=== PATIENT | female | born 1955 | race Caucasian/White ===

== ENCOUNTER 2018-04-19 12:28 | Inpatient (IN) | payer SELFPAY ==
[2018-04-19] MEDS ORDERED: MORPHINE 4 MG/ML SYR ONE (13:24)
[2018-04-19] MEDS ORDERED: ONDANSETRON 4 MG/2 ML VIAL ONE (13:24)
[2018-04-19] MEDS ORDERED: NA CHLORIDE 0.9% 1,000 ML ONE (13:25)
[2018-04-19 13:53] LABS: Absolute Lymphocytes (CBC) 1.4 K/uL (0.7-4.9); Absolute Monocytes 1.3 K/uL (0.1-1.3); Absolute Neutrophil 10.3 K/uL (1.8-8.0); Basophils % 0.5 % (0-1.3); Eosinophils % 0.3 % (0-4.4); Hematocrit 41.9 % (36.0-45.0); Lymphocytes % 10.5 % (15.3-44.8); MCH 29.9 pg (27.0-35.0); MCV 87.7 fL (80-100); MPV 7.8 fL (7.6-11.3); Monocytes % 9.9 % (3.3-12.3); RBC Red Blood Cell Count 4.77 M/uL (3.86-4.86)
[2018-04-19 14:04] LABS: Albumin 2.9 g/dL (3.4-5.0); Bilirubin Direct 0.7 mg/dL (0-0.2); Bilirubin Total 1.5 mg/dL (0.2-1.0); Potassium 4.2 mmol/L (3.5-5.1); Protein, Total 7.3 g/dL (6.4-8.2)
--- NOTE | 2018-04-19 15:37 | RAD REPORT ---
EXAM DESCRIPTION: CT - Abdomen Pelvis W Contrast - 04/19/2018 3:24 pm CLINICAL HISTORY: Abdominal pain. Right lower quadrant pain with vomiting COMPARISON: None. TECHNIQUE: Computed axial tomography of the abdomen and pelvis was obtained. 100 cc Isovue-300 is ad ministered intravenously. Oral contrast was given. All CT scans are performed using dose optimization technique as appropriate and may include automated exposure control or mA/KV adjustment according to patient size. FINDINGS: The liver, spleen, pancreas, adrenals and kidneys appear unremarkable. The appendix is retrocecal. It is dilated. Ill-defined fluid is present within the right lower quadra nt. A discrete abscess is not seen. Small amount of fluid is present within the pelvis. Wall thickeni ng of the posterior cecum is present IMPRESSION: Appendicitis Wall thickening of the posterior cecum may be secondary to inflammation or mass
--- NOTE | 2018-04-19 15:59 | ER ---
Nurse's Notes [facility] Name: Blanquita Gillespie Age: 62 yrs Sex: Female : 1955 Arrival Date: 04/19/2018 Time: 12:35 Bed 23 Private MD: Diagnosis: Acute appendicitis Presentation: 04/19 12:40 Presenting complaint: Patient states: i started having sharp pain on the R side of my hj abd; i thought its constipation so i took milk of magnesia and so i was able to go; and now it still hurting; denies fever and chills, nausea and vomiting;. Transition of care: patient was not received from another setting of care. Onset of symptoms was April 19, 2018. Risk Assessment: Do you want to hurt yourself or someone else? Patient reports no desire to harm self or others. Initial Sepsis Screen: Does the patient meet any 2 criteria? No. Patient's initial sepsis screen is negative. Does the patient have a suspected source of infection? No. Patient's initial sepsis screen is negative. Care prior to arrival: None. 12:40 Method Of Arrival: Ambulatory 12:40 Acuity: ROSAURA 3 hj Triage Assessment: 12:44 General: Appears in no apparent distress. uncomfortable, Behavior is calm, cooperative, hj appropriate for age. Pain: Complains of pain in abdomen. GI: Reports lower abdominal pain, constipation. Historical: - Allergies: 12:44 PENICILLINS; hj - Home Meds: 12:44 gabapentin 600 mg oral tab 1 tab 3 times per day [Active]; tramadol 50 mg Oral tab 1 hj tab every 4-6 hours [Active]; lisinopril 2.5 mg Oral tab 1 tab once daily [Active]; amitriptyline 100 mg Oral tab 1 tab nightly [Active]; - PMHx: 12:44 Hypertension; Pacemaker; hj - PSHx: 12:44 pacemaker; hj - Immunization history:: Adult Immunizations up to date. - Social history:: Smoking status: Patient/guardian denies using tobacco, Patient/guardian denies using alcohol. - Ebola Screening: : Patient negative for fever greater than or equal to 101.5 degrees Fahrenheit, and additional compatible Ebola Virus Disease symptoms Patient denies exposure to infectious person Patient denies travel to an Ebola-affected area in the 21 days before illness onset. Screenin:44 Abuse screen: Denies threats or abuse. Denies injuries from another. Nutritional hj screening: No deficits noted. Tuberculosis screening: No symptoms or risk factors identified. Fall Risk None identified. Assessment: 12:44 GI: Bowel sounds present X 4 quads. Abd is soft Abdomen is tender to palpation. hj 13:31 General: Appears in no apparent distress. comfortable, Behavior is calm, cooperative, aj appropriate for age. Pain: Complains of pain in right lower quadrant. Neuro: Level of Consciousness is awake, alert, obeys commands, Oriented to person, place, time, situation, Appropriate for age. Respiratory: Airway is patent Respiratory effort is even, unlabored, Respiratory pattern is regular, symmetrical. GI: Abdomen is flat, non-distended, Abdomen is tender to palpation in right lower quadrant Reports lower abdominal pain. Derm: Skin is intact, is healthy with good turgor, Skin is pink, warm \T\ dry. normal. 13:31 Reassessment: Lab called to collect blood. aj 15:01 Reassessment: Patient appears in no apparent distress at this time. No changes from aj previously documented assessment. Patient and/or family updated on plan of care and expected duration. Pain level reassessed. Patient is alert, oriented x 3, equal unlabored respirations, skin warm/dry/pink. Patient is resting comfortably in bed in NAD. 17:35 Reassessment: Patient appears in no apparent distress at this time. No changes from aj previously documented assessment. Patient and/or family updated on plan of care and expected duration. Pain level reassessed. Patient is alert, oriented x 3, equal unlabored respirations, skin warm/dry/pink. Dr Amor at bedside. Report given to OR nurse. Provided with tri fold consent. Vital Signs: 12:45 BP 129 / 54; Pulse 71; Resp 18; Temp 97.5(TE); Pulse Ox 97% on R/A; Weight 83.01 kg; hj Height 5 ft. 4 in. (162.56 cm); Pain 9/10; 13:54 BP 130 / 71; Pulse 70; Resp 16; Pulse Ox 94% on R/A; aj 15:04 BP 123 / 63; Pulse 70; Resp 14; Pulse Ox 91% on R/A; aj 17:35 BP 140 / 62; Pulse 70; Resp 18; Pulse Ox 98% on 2 lpm NC; aj 12:45 Body Mass Index 31.41 (83.01 kg, 162.56 cm) hj ED Course: 12:35 Patient arrived in ED. mr 12:42 Triage completed. hj 12:44 Arm band placed on left wrist. hj 12:45 Patient has correct armband on for positive identification. Placed in gown. Bed in low hj position. Call light in reach. Side rails up X 1. Adult w/ patient. 12:50 Chris Case PA is PHCP. cp 12:50 Chris Gaspar MD is Attending Physician. cp 13:01 Maryann Snow, YOU is Primary Nurse. aj 13:30 Inserted saline lock: 20 gauge in right forearm, using aseptic technique. Blood aj collected. 15:23 CT completed. Patient tolerated procedure well. Patient moved to CT. Patient moved back vm2 from CT. 15:24 CT Abd/Pelvis - W/Contrast In Process Unspecified. EDMS 15:58 Clark Davis MD is Hospitalizing Provider. cp 16:14 EKG done, by preventative maintenance technician. reviewed by Chris CARRENO. sm3 16:16 Gifty Hardy MD is Hospitalizing Provider. cp 16:33 X-ray completed. Portable x-ray completed in exam room. Patient tolerated procedure bb2 well. 16:34 XRAY Chest (1 view) In Process Unspecified. EDMS 17:35 No provider procedures requiring assistance completed. Patient admitted, IV remains in aj place. intact. Administered Medications: 13:29 Drug: morphine 2 mg Route: IVP; Site: right forearm; aj 18:03 Follow up: Response: No adverse reaction; Pain is decreased aj 13:29 Drug: Zofran 4 mg Route: IVP; Site: right forearm; aj 18:03 Follow up: Response: Nausea is decreased aj 13:30 Drug: NS 0.9% 500 ml Route: IV; Rate: bolus; Site: right forearm; aj 18:02 Follow up: Response: No adverse reaction; IV Status: Completed infusion; IV Intake: aj 500ml 13:30 Drug: NS 0.9% 1000 ml Route: IV; Rate: 125 ml/hr; Site: right forearm; aj 18:03 Follow up: Response: No adverse reaction; IV Status: Order to discontinue infusion; IV aj Intake: 350ml 16:06 Drug: metroNIDAZOLE 500 mg Volume: 100 ml; Route: IVPB; Infused Over: 30 mins; Site: aj right forearm; 18:04 Follow up: Response: No adverse reaction; IV Status: Completed infusion; IV Intake: aj 100ml 16:06 Drug: Mefoxin 1 grams Route: IVPB; Infused Over: 30 mins; Site: right forearm; aj 18:04 Follow up: Response: No adverse reaction; IV Status: Completed infusion; IV Intake: 10mlaj Intake: 18:02 IV: 500ml; Total: 500ml. aj 18:03 IV: 350ml; Total: 850ml. aj 18:04 IV: 100ml; Total: 950ml. aj 18:04 IV: 10ml; Total: 960ml. [place] Outcome: 15:58 Decision to Hospitalize by Provider. cp 17:35 Admitted to OR accompanied by nurse, via stretcher, with chart, Report called to OR aj nurse 17:35 Condition: good 17:35 Instructed on the need for admit. 18:05 Patient left the ED. [place] Signatures: Dispatcher [employer] Maryann Mendenhall, RN RN Sylvia Monte Henry, RN RN Chris Priest PA PA cp McGuire, Victoria 2 Cait Frey 2 Maite Fairchild 3
--- NOTE | 2018-04-19 15:59 | EDPHYS ---
Physician Documentation [facility] Name: Blanquita Gillespie Age: 62 yrs Sex: Female : 1955 Arrival Date: 04/19/2018 Time: 12:35 Bed 23 Private MD: ED Physician Chris Gaspar HPI: 04/19 13:05 This 62 yrs old Female presents to ER via Ambulatory with complaints of cp Abdominal Pain. 13:05 The patient presents with abdominal pain right lower quadrant. Onset: The cp symptoms/episode began/occurred yesterday. The symptoms do not radiate. Associated signs and symptoms: Pertinent positives: nausea, Pertinent negatives: chest pain, constipation, diarrhea, dysuria, fever, vomiting. Severity of pain: in the emergency department the pain is unchanged despite home interventions. Historical: - Allergies: 12:44 PENICILLINS; hj - Home Meds: 12:44 gabapentin 600 mg oral tab 1 tab 3 times per day [Active]; tramadol 50 mg Oral tab 1 hj tab every 4-6 hours [Active]; lisinopril 2.5 mg Oral tab 1 tab once daily [Active]; amitriptyline 100 mg Oral tab 1 tab nightly [Active]; - PMHx: 12:44 Hypertension; Pacemaker; hj - PSHx: 12:44 pacemaker; hj - Immunization history:: Adult Immunizations up to date. - Social history:: Smoking status: Patient/guardian denies using tobacco, Patient/guardian denies using alcohol. - Ebola Screening: : Patient negative for fever greater than or equal to 101.5 degrees Fahrenheit, and additional compatible Ebola Virus Disease symptoms Patient denies exposure to infectious person Patient denies travel to an Ebola-affected area in the 21 days before illness onset. ROS: 13:10 Constitutional: Negative for body aches, chills, fever, poor PO intake. cp 13:10 Eyes: Negative for injury, pain, redness, and discharge. cp 13:10 ENT: Negative for drainage from ear(s), ear pain, sore throat, difficulty swallowing, difficulty handling secretions. 13:10 Cardiovascular: Negative for chest pain, palpitations. 13:10 Respiratory: Negative for cough, shortness of breath, wheezing. 13:10 Abdomen/GI: Positive for abdominal pain, nausea, Negative for vomiting, diarrhea, constipation, black/tarry stool, rectal bleeding. 13:10 Back: Negative for pain at rest, pain with movement, radiated pain. 13:10 : Negative for urinary symptoms, pelvic pain, vaginal bleeding. 13:10 Skin: Negative for cellulitis, rash. 13:10 Neuro: Negative for altered mental status, headache, weakness. 13:10 All other systems are negative. Exam: 13:18 Constitutional: The patient appears in no acute distress, alert, awake, non-toxic, well cp developed, well nourished. 13:18 Head/Face: Normocephalic, atraumatic. cp 13:18 Eyes: Periorbital structures: appear normal, Conjunctiva: normal, no exudate, no injection, Sclera: no appreciated abnormality, Lids and lashes: appear normal, bilaterally. 13:18 ENT: External ear(s): are unremarkable, Nose: is normal, Mouth: Lips: moist, Oral mucosa: pink and intact, moist, Posterior pharynx: is normal, airway is patent, no erythema, no exudate. 13:18 Neck: ROM/movement: is normal, is supple, without pain, no range of motions limitations, no nuchal rigidity. 13:18 Chest/axilla: Inspection: normal, Palpation: is normal, no crepitus, no tenderness. 13:18 Cardiovascular: Rate: normal, Rhythm: regular, Edema: is not appreciated, JVD: is not appreciated. 13:18 Respiratory: the patient does not display signs of respiratory distress, Respirations: normal, no use of accessory muscles, no retractions, no splinting, no tachypnea, labored breathing, is not present, Breath sounds: are clear throughout, no decreased breath sounds, no stridor, no wheezing. 13:18 Abdomen/GI: Inspection: abdomen appears normal, Bowel sounds: active, all quadrants, Palpation: soft, in all quadrants, moderate abdominal tenderness, in the right lower quadrant, voluntary guarding, is elicited in the right lower quadrant. 13:18 Back: pain, is absent, ROM is normal. 13:18 Skin: cellulitis, is not appreciated, no rash present. 16:15 ECG was reviewed by the Attending Physician. cp Vital Signs: 12:45 BP 129 / 54; Pulse 71; Resp 18; Temp 97.5(TE); Pulse Ox 97% on R/A; Weight 83.01 kg; hj Height 5 ft. 4 in. (162.56 cm); Pain 9/10; 13:54 BP 130 / 71; Pulse 70; Resp 16; Pulse Ox 94% on R/A; aj 15:04 BP 123 / 63; Pulse 70; Resp 14; Pulse Ox 91% on R/A; aj 17:35 BP 140 / 62; Pulse 70; Resp 18; Pulse Ox 98% on 2 lpm NC; aj 12:45 Body Mass Index 31.41 (83.01 kg, 162.56 cm) MDM: 12:50 Patient medically screened. cp 13:30 Differential diagnosis: AAA, appendicitis, diverticulitis, GI Bleed, Ureterolithiasis, cp urinary tract infection. 15:50 Data reviewed: vital signs, nurses notes, lab test result(s), radiologic studies, plain cp films. 15:50 Physician consultation: Hipolito Amor MD was called at 15:50, was contacted at 15:50, regarding admission, patient's condition. 04/19 12:58 Order name: Amylase, Serum; Complete Time: 15:48 04/19 12:58 Order name: Basic Metabolic Panel; Complete Time: 15:48 04/19 12:58 Order name: CBC with Diff; Complete Time: 15:48 04/19 12:58 Order name: Creatinine for Radiology; Complete Time: 15:48 04/19 12:58 Order name: Hepatic Function; Complete Time: 15:48 04/19 12:58 Order name: Lipase; Complete Time: 15:48 04/19 12:58 Order name: Urine Microscopic Only 04/19 13:14 Order name: CT Abd/Pelvis - W/Contrast; Complete Time: 15:48 04/19 15:49 Interpretation: Report reviewed. 04/19 15:56 Order name: XRAY Chest (1 view); Complete Time: 17:52 04/19 17:53 Interpretation: Report review. 04/19 12:58 Order name: IV Saline Lock; Complete Time: 13:30 04/19 15:56 Order name: EKG; Complete Time: 15:56 cp EC:15 Rate is 71 beats/min. Rhythm is regular. FL interval is prolonged at 164 msec. QT cp interval is normal. T waves are Inverted in leads aVL, aVR. Interpreted by me. Reviewed by me. Administered Medications: 13:29 Drug: morphine 2 mg Route: IVP; Site: right forearm; aj 18:03 Follow up: Response: No adverse reaction; Pain is decreased aj 13:29 Drug: Zofran 4 mg Route: IVP; Site: right forearm; aj 18:03 Follow up: Response: Nausea is decreased aj 13:30 Drug: NS 0.9% 500 ml Route: IV; Rate: bolus; Site: right forearm; aj 18:02 Follow up: Response: No adverse reaction; IV Status: Completed infusion; IV Intake: aj 500ml 13:30 Drug: NS 0.9% 1000 ml Route: IV; Rate: 125 ml/hr; Site: right forearm; aj 18:03 Follow up: Response: No adverse reaction; IV Status: Order to discontinue infusion; IV aj Intake: 350ml 16:06 Drug: metroNIDAZOLE 500 mg Volume: 100 ml; Route: IVPB; Infused Over: 30 mins; Site: aj right forearm; 18:04 Follow up: Response: No adverse reaction; IV Status: Completed infusion; IV Intake: aj 100ml 16:06 Drug: Mefoxin 1 grams Route: IVPB; Infused Over: 30 mins; Site: right forearm; aj 18:04 Follow up: Response: No adverse reaction; IV Status: Completed infusion; IV Intake: 10mlaj Disposition: 04/20 06:35 Co-signature as Attending Physician, Chris Gaspar MD I agree with the assessment and arabella plan of care. Disposition: 04/19/18 15:58 Hospitalization ordered by Gifty Hardy for Observation. Preliminary diagnosis is Acute appendicitis. - Bed requested for Telemetry/MedSurg (observation). - Status is Observation. aj - Condition is Stable. - Problem is new. - Symptoms have improved. UTI on Admission? No Signatures: Dispatcher [employer] Maryann Mendenhall RN RN aj Anderson, Corey, MD MD cha Joaquin, Henry, RN RN hj Page, Corey, PA PA cp Corrections: (The following items were deleted from the chart) 04/19 16:16 15:58 Hospitalization Ordered by Clakr Davis MD for Observation. Preliminary diagnosis cp is Acute appendicitis. Bed requested for Telemetry/MedSurg (observation). Status is Observation. Condition is Stable. Problem is new. Symptoms have improved. UTI on Admission? No. cp 18:05 16:16 04/19/2018 15:58 Hospitalization Ordered by Gifty Hardy MD for Observation. aj Preliminary diagnosis is Acute appendicitis. Bed requested for Telemetry/MedSurg (observation). Status is Observation. Condition is Stable. Problem is new. Symptoms have improved. UTI on Admission? No. cp
[2018-04-19] MEDS ORDERED: CEFOXITIN/SWI 1gm 1 GM/10 ML SYR ONE (16:06)
[2018-04-19] MEDS ORDERED: METRONIDAZOLE 500mg IVPB 500 MG/100 ML BAG IV ONE (16:06)
--- NOTE | 2018-04-19 16:44 | RAD REPORT ---
EXAM DESCRIPTION: RAD - Chest Single View - 04/19/2018 4:34 pm CLINICAL HISTORY: COPD Chest pain. COMPARISON: No comparisons FINDINGS: Portable technique limits examination quality. Mild interstitial pulmonary edema is noted. The heart is prominent in size with a small left pleural effusion. No displaced fractures.Single lead pacer device is in place. IMPRESSION: Mild CHF/ volume overload.
[2018-04-19] MEDS ORDERED: PROPOFOL 200 MG/20 ML VIAL IV ONE (17:21)
[2018-04-19] MEDS ORDERED: ROCURONIUM 50 MG/5 ML VIAL IV ONE (17:23)
[2018-04-19] MEDS ORDERED: FENTANYL CITR 100 MCG/2 ML ONE (17:23)
[2018-04-19] MEDS ORDERED: Ringers Lactate 1,000 ML IV ONE (17:54)
[2018-04-19] MEDS ORDERED: EPHEDRINE SULF 50 MG/10 ML SYR ONE (18:15)
[2018-04-19] MEDS ORDERED: Phenylephrine HCl 10 MG/ML 1 ML VIAL ONE (18:21)
[2018-04-19] MEDS ORDERED: KETOROLAC 30 MG/ML INJ ONE (18:29)
[2018-04-19] MEDS ORDERED: ONDANSETRON HCL 40 MG/20 ML VIAL ONE (18:29)
[2018-04-19] MEDS ORDERED: NEOSTIGMINE 1 MG/ML -5 ML SYRINGE ONE (18:49)
[2018-04-19] MEDS ORDERED: GLYCOPYRROLATE 0.2 MG/ML SYR ONE (18:49)
[2018-04-19] MEDS ORDERED: NA CHLORIDE 0.9% 1,000 ML IV SCH (19:20)
[2018-04-19] MEDS ORDERED: ACETAMINOPHEN 500 MG TAB PO PRN (19:20)
--- NOTE | 2018-04-19 20:18 | P.BOP ---
Preoperative diagnosis: periitonitis, Acute appendicitis, colitis Postoperative diagnosis: acute perforated appendicitis with intrabdominal abscess, extensive adhesio Primary procedure: Laparoscopic appendectomy with intrabdominal abscess drainage. Secondary procedure: Partial cecectomy, extensive JOEL Estimated blood loss: <20cc Specimen: sandoval Findings: rupture appendix with intraabdominal Anesthesia: General Complications: None Transferred to: Recovery Room Condition: Good
[2018-04-19] MEDS ORDERED: CEFEPIME 1 GM/VIAL IV SCH (21:00)
[2018-04-19] MEDS ORDERED: CEFEPIME 1 GM/100 ML BAG IV ONE (21:29)
--- NOTE | 2018-04-19 23:07 | CON ---
Date of Consultation: 04/19/2018 Reason For Service: Appendicitis. History Of Present Illness: This is the case of a 62-year-old patient who comes to us complaining of abdominal pain since last night. She denies any vomiting although she states some nausea. She said it came out of the blue. She denies eating anything out of the usual. She denies any family member s sick at home. Most of the information is obtained from her. The history about her medical problem s is somehow scatter and the information is not as precise as we want to, because she claimed that philly rushing came to live with some friends recently in [place]. She used to have history of atrial fibrillati on for what she received what she claim is a pacemaker but she has not had any followup with that and she is not even taking any blood thinners. She has not had any colonoscopy because she did not have the resources to do so. Review of Systems: Ten points otherwise unremarkable. Medical History: Hypertension, atrial fibrillation, cardiac pacemaker although I do not know the det ails of it. Surgical History: Includes a hysterectomy many years ago. Social History: She does not smoke. She does not drink alcohol. Medications: Include lisinopril, amitriptyline, tramadol, and gabapentin. Allergies: PENICILLIN. Family History: Noncontributory. Physical Examination: General: Patient is awake and alert. HEENT: Pupils are equal and reactive, anicteric. Neck: Supple. Chest: Clear. Abdomen: Right lower quadrant tenderness with guarding and rebound. Psoas sign positive. Rovsing s ign positive. Pelvic: Deferred. Rectal: Deferred. Breasts: Deferred. Extremities: Good capillary refill. Laboratory Data: WBC count 13.1 with a hemoglobin of 14.3. UA is still pending. Chloride is 100, p otassium is 4.2. CAT scan of the abdomen and pelvis interpreted by Dr. Amador as acute appendiciti s. Assessment: This is a 62-year-old patient with acute appendicitis. The patient fully explained the benefits, alternatives, and risks of laparoscopic with possible open appendectomy, which include but not limited to infection, bleeding, damage to adjacent structures, anesthesia complications, [place], and even . She also understands this may not relieve any symptoms, she might need more than one katia gical intervention. It is important that patient have a colonoscopy in the next several weeks since she has not had one done and we have to rule out neoplastic disease. At the same time, it is very im portant also she follow up with her medical doctor and her supervisor polishing for a followup on her atrial fibrillation and also any medication she might be needing for the rest of other complications includi ng stroke. She understood. She verbalized back to us. The OR was emergently called. JOVAN/MUNDO Voice ID: [id number] Report ID: [id number]
[2018-04-20] MEDS: MORPHINE 4 MG/ML SYR IV PRN ×3 (03:06→20:40)
[2018-04-20] MEDS ORDERED: TRAMADOL HCL 50 MG TAB PO PRN ×3 (03:48→03:49)
[2018-04-20] MEDS: NA CHLORIDE 0.9% 1,000 ML IV SCH ×3 (04:00→18:18)
--- NOTE | 2018-04-20 06:25 | P.HP ---
Certification for Inpatient Patient admitted to: Inpatient With expected LOS: >2 Midnights Patient will require the following post-hospital care: None Practitioner: I am a practitioner with admitting privileges, knowledge of patient current condition, hospital course, and medical plan of care. Services: Services provided to patient in accordance with Admission requirements found in Title 42 Section 412.3 of the Code of Federal Regulations Patient History Date of Service: 04/19/18 Reason for admission: Acute appendicitis History of Present Illness: Patient is a 62-year-old female came into the hospital with right lower quadrant tenderness. She was seen in the emergency room and found to have an acute appendicitis. She was taken to the operating room by surgery and had a laparoscopic appendectomy performed. She had a J-tube placed and she will be given IV antibiotics and IV hydration. She will leave monitor closely over the next 24-48 hrs. Patient has history of Coronary artery disease with pacemaker placement. Patient is not compliant with her medications. 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 She is clinically doing okay but she tends to neglect herself quite a bit. She will need to be admitted to the hospital for laparoscopic appendectomy and will proceed with further plan of care after this. Allergies Penicillins Allergy (Mild, Verified 04/19/18 21:32) Rash Home Medications: Amitriptylline 100 mg PO BEDTIME 04/19/18 Gabapentin 1 tab PO TID 04/19/18 Lisinopril [Zestril] 1 tab PO DAILY 04/19/18 Tiotropium [Spiriva Handihaler*] 1 spray IH DAILY 04/19/18 Tramadol HCl [Ultram] 1 tab PO SEECOM PRN 04/19/18 - Past Medical/Surgical History Has patient received pneumonia vaccine in the past: No Diabetic: No -: HTN -: Pacemaker -: COPD -: Pacemaker - Family History Father Medical History: Heart disease - Social History Smoking Status: Former smoker Alcohol use: No CD- Drugs: No Caffeine use: Yes Place of Residence: Home Review of Systems 10-point ROS is otherwise unremarkable Physical Examination - Vital Signs Temperature: 98.3 F Blood Pressure: 127/58 Pulse: 71 Respirations: 16 Pulse Ox (%): 98 - Physical Exam General: Alert, In no apparent distress, Oriented x3 HEENT: Atraumatic, PERRLA, Mucous membr. moist/pink, EOMI, Sclerae nonicteric Neck: Supple, 2+ carotid pulse no bruit, No LAD, Without JVD or thyroid abnormality Respiratory: Clear to auscultation bilaterally, Normal air movement Cardiovascular: Regular rate/rhythm, Normal S1 S2 Gastrointestinal: Normal bowel sounds, Soft and benign, Non-distended, No tenderness, Other (J-tube draining) Musculoskeletal: No clubbing, No swelling, No tenderness Integumentary: No rashes Neurological: Normal gait, Normal speech, Normal strength at 5/5 x4 extr, Normal tone, Sensation intact, Cranial nerves 3-12 intact, Normal affect Lymphatics: No axilla or inguinal lymphadenopathy - Studies Laboratory Data (last 24 hrs) 04/19/18 13:36: Creatinine 0.70 04/19/18 13:36: WBC 13.1 H, Hgb 14.3, Hct 41.9, Plt Count 187 04/19/18 13:36: Sodium 134 L, Potassium 4.2, BUN 15, Creatinine 0.70, Glucose 91 , Total Bilirubin 1.5 H, AST 29, ALT 25, Alkaline Phosphatase 103, Amylase 23 L , Lipase 54 L Assessment & Plan - Plan Assessment: 1. Acute appendicitis 2. History of COPD 3. History of hypertension Plan: 1. Status post laparoscopic appendectomy. Patient also had a J-tube placed. Patient is clinically doing better. Feels as if her pain is much improved. She will need continued IV antibiotic therapy and blood pressure control. Will also use inhaler therapy for folks COPD. Anticipate discharge home in the next 24-48 hr. Patient meets criteria for observation. Discharge Plan: Home Plan to discharge in: Greater than 2 days - Advance Directives Does patient have a Living Will: No Does patient have a Durable POA for Healthcare: No - Code Status/Comfort Care Code Status Assessed: Yes Code Status: Full Code Critical Care: No Time Spent Managing PTS Care (In Minutes): 45
[2018-04-20 06:33] LABS: Bilirubin Total 2.4 mg/dL (0.2-1.0); Potassium 5.3 mmol/L (3.5-5.1); Protein, Total 7.4 g/dL (6.4-8.2)
[2018-04-20 06:46] LABS: Absolute Lymphocytes (CBC) 0.6 K/uL (0.7-4.9); Absolute Monocytes 1.2 K/uL (0.1-1.3); Absolute Neutrophil 13.4 K/uL (1.8-8.0); Basophils % 0.2 % (0-1.3); Hematocrit 41.2 % (36.0-45.0); MCH 30.6 pg (27.0-35.0); MCV 90.4 fL (80-100); MPV 8.3 fL (7.6-11.3); Monocytes % 7.9 % (3.3-12.3); RBC Red Blood Cell Count 4.56 M/uL (3.86-4.86)
[2018-04-20 08:42] LABS: Blood Morphology Comment NOT SEEN (NOT SEEN); Platelet Estimate ADEQ; Urine White Blood Cell Casts OK
[2018-04-20] MEDS ORDERED: CEFEPIME/SWI 1gm 1 GM/10 ML SYR IV SCH (09:00)
[2018-04-20] MEDS: LISINOPRIL 5 MG TAB PO SCH (09:00)
[2018-04-20] MEDS: TIOTROPIUM 5 SPRAYS/INHALER IH SCH (09:01)
[2018-04-20] MEDS: GABAPENTIN 300 MG CAP PO SCH ×3 (09:04→20:41)
[2018-04-20] MEDS ORDERED: PNEUMOCOCCAL VACCINE 0.5 ML IMVAC ONE (10:00)
--- NOTE | 2018-04-20 12:12 | EKG ---
Test Date: 2018-04-19 Test Time: 16:10:13 [employer] Driver: DORI MEASUREMENT RESULTS: Intervals: Rate: 71 DC: QRSD: 164 QT: 468 QTc: 508 [place]: P: DC: QRS: -56 T: 84 INTERPRETIVE STATEMENTS: Electronic ventricular pacemaker No previous ECG available for comparison Electronically Signed On 04-20-18 12:08:59 CDT by Nii Rasmussen
[2018-04-20] MEDS: Levofloxacin500mg IV 500 MG/100 ML BAG IV SCH (13:20)
[2018-04-20] MEDS: ONDANSETRON 4 MG/2 ML VIAL IV PRN ×2 (13:41→20:41)
--- NOTE | 2018-04-20 13:56 | P.PN ---
Subjective Date of Service: 04/20/18 Chief Complaint: Acute appendicitis Patient seen and examined at bedside with RN. Chart reviewed. Case discussed with general surgery. This december morning patient denies having any abdominal pain however states that her family has been sore from the surgery. Negative for flatulence. Has not been able to ambulate at this time as well. Review of Systems 10-point ROS is otherwise unremarkable Physical Examination - Vital Signs Temperature: 98 F Blood Pressure: 131/63 Pulse: 69 Respirations: 20 Pulse Ox (%): 95 - Physical Exam General: Alert, In no apparent distress HEENT: Atraumatic, PERRLA, EOMI Neck: Supple, JVD not distended Respiratory: Clear to auscultation bilaterally, Normal air movement Cardiovascular: Regular rate/rhythm, Normal S1 S2 Gastrointestinal: Normal bowel sounds, Other (HELEN drain in place), Tenderness, Rebound Musculoskeletal: No tenderness Integumentary: No rashes Neurological: Normal speech, Normal tone, Normal affect Lymphatics: No axilla or inguinal lymphadenopathy - Studies Laboratory Data (last 24 hrs) 04/19/18 13:36: Creatinine 0.70 04/19/18 13:36: WBC 13.1 H, Hgb 14.3, Hct 41.9, Plt Count 187 04/19/18 13:36: Sodium 134 L, Potassium 4.2, BUN 15, Creatinine 0.70, Glucose 91 , Total Bilirubin 1.5 H, AST 29, ALT 25, Alkaline Phosphatase 103, Amylase 23 L , Lipase 54 L Medications List Reviewed: Yes Assessment And Plan - Current Problems (Diagnosis) (1) Acute appendicitis Onset Date: 04/20/18 Current Visit: Yes Status: Acute Plan: Acute appendicitis with generalized peritonitis along with intra-abdominal abscess -general surgery consulted. Recommendation appreciated -patient is status post removal of the appendix POD 1. -currently on IV Levaquin and Flagyl -will continue to monitor closely for any worsening at this time. (2) Peritonitis Current Visit: Yes Status: Acute Plan: See # 1 (3) COPD (chronic obstructive pulmonary disease) Current Visit: Yes Status: Chronic Plan: P.dina Lange (4) HTN (hypertension) Current Visit: Yes Status: Chronic Plan: Restarted on home medication - Plan Currently awaiting clinical improvement at this time. Will continue with IV antibiotics. Will follow up with general surgery regarding diet patient encouraged to ambulate as much as possible to help pass flatulence Discharge Plan: Home Plan to discharge in: Greater than 2 days - Code Status/Comfort Care Code Status Assessed: Yes Critical Care: No
[2018-04-20] MEDS: METRONIDAZOLE 500mg IVPB 500 MG/100 ML BAG IV SCH (17:11)
[2018-04-20] MEDS: AMITRIPTYLINE 50 MG TAB PO SCH (20:41)
--- NOTE | 2018-04-20 22:44 | OP ---
Date of Procedure: 04/19/2018 Surgeon: Hipolito Amor MD Preoperative Diagnoses: Peritonitis, acute appendicitis, colitis. Postoperative Diagnoses: Acute perforated appendicitis with intraabdominal abscess. Procedure: Laparoscopic appendectomy with intraabdominal abscess drainage, partial cecectomy. Estimated Blood Loss: Less than 20 cc. Specimen: Appendix and partial cecectomy. Findings: Ruptured appendix with intraabdominal abscess. Anesthesia: General plus local. Indication: This is a case of a female who came to us emergently with abdominal pain diagnosed with appendicitis and inflammation of the cecum. The patient was taken immediately to the OR since the pa tient has peritonitis. Benefits, alternatives, and risks of laparoscopic, possible open appendectomy fully explained to the patient, which include but are not limited to infection, bleeding, damage to adjacent structures, anesthesia complication, [place], even . She also understands this may not reli rhonda any symptoms. She might need more than one surgical intervention. She understands the importanc e of colonoscopy since she has not had one before. Even though this comes back negative for cancer, still colonoscopy is needed in the next few weeks if clinically possible. She understood, signed a c onsent. Description Of Procedure: The patient was emergently brought to the operating room, placed in supine position. Anesthesia was done without complication. Abdominal area was prepped and draped in a pamela rile fashion. Marcaine 0.5% injected for local anesthetic, followed by sharp incision of the skin in the infraumbilical region. Incision was carried down to fascia, which was opened under direct visio n. Peritoneum was encountered, opened under direct vision. Vicryl #1 placed inside of the fascia. Susan trocar was carefully introduced. No bleeding was obtained. I placed 2 more trocars, 5 mm eac h one of them. We have to do some lysis of adhesions. The patient had extensive lower abdominal adh esions from previous surgery. She claims that she had a hysterectomy in the past. We put 1 trocar a nd then with the help of Endo misa connected to Bovie cauterizer we proceed to do lysis of adhesion s until we have the area clear that we could put the next trocar in the left lower quadrant. Once we did that, we checked for the lysis of adhesions. No bleeding. At that moment, I proceeded to pay a ttention to the right lower quadrant. We noticed an inflamed appendix, goes retrocecal next to the c ecum and the base of the appendix with part of the cecum was also inflamed, although no necrotic but in order for us to remove that area of disease part of the cecum have to be removed. So, we created a window in the base of the appendix, transected that with an Endo NATI 45 mm 2.5 and work away in the cecum to do a partial cecectomy of the area of the appendix base that is involved. The terminal ile um was identified at all time, preserved. Before that, cecum have to be mobilized to the right side. We noticed the inflammation, but we cannot see any mass at this time. So, the appendix was removed via partial cecectomy. The hemostasis was obtained with the help of an Endo NATI 45 mm, 2.5 for the mesoappendix, and the appendix and cecectomy was done with an Endo NATI 45 mm 2.5. No bowel leak. No bleeding. The area was profusely irrigated after the specimen was removed. We irrigated the area w ith several liters of fluid. We have some stool content from the perforation of that appendix which shows on the right side once we mobilized the area so I just left a drain in that region. The area w as cleaned and irrigated until clean. The area of the perforation looked like is right next to the b ase of the appendix, although the base of the area where we transected and the cecectomy looks intact . Not involved in the inflammation. There was no involvement in the perforation. HELEN was exiting th rough one of the ports. Area of the lysis of adhesions looks intact, and then after that, I proceede d to remove the trocars under direct vision. Deflated pneumoperitoneum. Closed the fascia with #1 V icryl, irrigated the subcutaneous tissue, closed that with 3-0 chromic and then the skin with marya . Sponge count and instrument counts were correct. The patient tolerated the procedure well. The p atient was sent to recovery room in stable condition. We suspect this patient to stay in the hospita for about 5 to 7 days on IV antibiotics. So, we are going to look abdomen for development of any o ther intraabdominal abscess. We drained the abscess that was next to the perforation now. We still have the antibiotics to try to diminish the chance of her coming back for further cleaning. She understood. JOVAN/MUNDO Voice ID: [id number] Report ID: [id number]
[2018-04-21] MEDS: METRONIDAZOLE 500mg IVPB 500 MG/100 ML BAG IV SCH ×3 (00:24→17:57)
[2018-04-21 05:56] LABS: Albumin 2.8 g/dL (3.4-5.0); Bilirubin Total 2.2 mg/dL (0.2-1.0); Potassium 5.1 mmol/L (3.5-5.1); Protein, Total 7.5 g/dL (6.4-8.2)
[2018-04-21 06:00] LABS: Absolute Lymphocytes (CBC) 0.8 K/uL (0.7-4.9); Absolute Monocytes 1.8 K/uL (0.1-1.3); Absolute Neutrophil 12.1 K/uL (1.8-8.0); Basophils % 0.3 % (0-1.3); Hematocrit 40.4 % (36.0-45.0); Lymphocytes % 5.3 % (15.3-44.8); MCH 30.6 pg (27.0-35.0); MCV 89.1 fL (80-100); MPV 7.6 fL (7.6-11.3); Monocytes % 12.3 % (3.3-12.3); RBC Red Blood Cell Count 4.54 M/uL (3.86-4.86)
[2018-04-21] MEDS: MORPHINE 4 MG/ML SYR IV PRN (08:11)
[2018-04-21] MEDS: LISINOPRIL 5 MG TAB PO SCH (08:12)
[2018-04-21] MEDS: GABAPENTIN 300 MG CAP PO SCH ×3 (08:12→20:33)
[2018-04-21] MEDS: TIOTROPIUM 5 SPRAYS/INHALER IH SCH (08:23)
[2018-04-21] MEDS: NA CHLORIDE 0.9% 1,000 ML IV SCH ×2 (08:28→17:57)
[2018-04-21 08:35] LABS: Magnesium 2.5 mg/dL (1.8-2.4); Phosphorus 3.1 mg/dL (2.5-4.9)
[2018-04-21] MEDS ORDERED: MORPHINE 4 MG/ML SYR IV PRN (11:23)
[2018-04-21] MEDS ORDERED: MORPHINE 2 MG/ML SYR IV PRN (11:24)
[2018-04-21] MEDS: Levofloxacin500mg IV 500 MG/100 ML BAG IV SCH (12:16)
--- NOTE | 2018-04-21 12:56 | RAD REPORT ---
EXAM DESCRIPTION: RAD - Chest Pa And Lat (2 Views) - 04/21/2018 12:36 pm CLINICAL HISTORY: recheck chf/volume overload Chest pain. COMPARISON: Chest Single View dated 04/19/2018; Abdomen Pelvis W Contrast dated 04/19/2018 FINDINGS: Since the prior study, mild improvement lung aeration is noted. Minimal interstitial pulmo nary edema is still likely present. The heart is significantly enlarged in size with a single lead pa cer device present. No displaced fractures. Distention of small bowel loops in the upper abdomen note d. IMPRESSION: Mild improvement in lung aeration since prior study.
--- NOTE | 2018-04-21 13:42 | P.PN ---
Subjective Date of Service: 04/21/18 Chief Complaint: Acute appendicitis Patient seen and examined at bedside with RN. Chart reviewed. Case discussed with general surgery. negative for Flatulence, Currently appears sleepy due to recent Pain medication Review of Systems 10-point ROS is otherwise unremarkable Physical Examination - Vital Signs Temperature: 98.7 F Blood Pressure: 155/65 Pulse: 64 Respirations: 18 Pulse Ox (%): 98 - Physical Exam General: Alert, In no apparent distress HEENT: Atraumatic, PERRLA, EOMI Neck: Supple, JVD not distended Respiratory: Clear to auscultation bilaterally, Normal air movement Cardiovascular: Regular rate/rhythm, Normal S1 S2 Gastrointestinal: Normal bowel sounds, Tenderness, Rebound Musculoskeletal: No tenderness Integumentary: No rashes Neurological: Normal speech, Normal tone, Normal affect Lymphatics: No axilla or inguinal lymphadenopathy - Studies Medications List Reviewed: Yes Assessment And Plan - Current Problems (Diagnosis) (1) Acute appendicitis Onset Date: 04/20/18 Current Visit: Yes Status: Acute Plan: Acute appendicitis with generalized peritonitis along with intra-abdominal abscess -general surgery consulted. Recommendation appreciated -patient is status post removal of the appendix POD 2. -currently on IV Levaquin and Flagyl -will continue to monitor closely for any worsening at this time. (2) Peritonitis Current Visit: Yes Status: Acute Plan: See # 1 (3) COPD (chronic obstructive pulmonary disease) Current Visit: Yes Status: Chronic Plan: P.r.bettye Lange (4) HTN (hypertension) Current Visit: Yes Status: Chronic Plan: Restarted on home medication - Plan Currently awaiting clinical improvement at this time. Will continue with IV antibiotics. Will follow up with general surgery regarding diet, patient encouraged to ambulate as much as possible to help pass flatulence Discharge Plan: Home Plan to discharge in: 72 Hours - Code Status/Comfort Care Code Status Assessed: Yes Critical Care: No
[2018-04-21] MEDS: TRAMADOL HCL 50 MG TAB PO PRN (20:33)
[2018-04-21] MEDS: AMITRIPTYLINE 50 MG TAB PO SCH (20:33)
[2018-04-22] MEDS: METRONIDAZOLE 500mg IVPB 500 MG/100 ML BAG IV SCH ×3 (00:01→16:23)
[2018-04-22] MEDS: TIOTROPIUM 5 SPRAYS/INHALER IH SCH (08:00)
[2018-04-22] MEDS: LISINOPRIL 5 MG TAB PO SCH (09:00)
[2018-04-22] MEDS: GABAPENTIN 300 MG CAP PO SCH ×3 (09:00→21:20)
[2018-04-22 09:56] LABS: Absolute Lymphocytes (CBC) 0.7 K/uL (0.7-4.9); Absolute Monocytes 1.2 K/uL (0.1-1.3); Absolute Neutrophil 11.7 K/uL (1.8-8.0); Basophils % 0.3 % (0-1.3); Eosinophils % 0.3 % (0-4.4); Hematocrit 38.1 % (36.0-45.0); MCH 30.8 pg (27.0-35.0); MCV 89.8 fL (80-100); MPV 7.7 fL (7.6-11.3); Monocytes % 8.4 % (3.3-12.3); RBC Red Blood Cell Count 4.25 M/uL (3.86-4.86)
[2018-04-22 10:29] LABS: Blood Morphology Comment NOT SEEN (NOT SEEN); Platelet Estimate ADEQ
[2018-04-22 11:18] LABS: Albumin 2.5 g/dL (3.4-5.0); Bilirubin Total 1.6 mg/dL (0.2-1.0); Potassium 5.1 mmol/L (3.5-5.1); Protein, Total 6.8 g/dL (6.4-8.2)
[2018-04-22] MEDS: Levofloxacin500mg IV 500 MG/100 ML BAG IV SCH (12:45)
[2018-04-22] MEDS: NA CHLORIDE 0.9% 1,000 ML IV SCH (12:45)
--- NOTE | 2018-04-22 13:39 | P.PN ---
Subjective Date of Service: 04/22/18 Chief Complaint: Acute appendicitis Patient seen and examined at bedside with RN. Chart reviewed. Case discussed with general surgery. negative for Flatulence, ambulating with PT now Review of Systems 10-point ROS is otherwise unremarkable Physical Examination - Vital Signs Temperature: 97.9 F Blood Pressure: 149/65 Pulse: 71 Respirations: 20 Pulse Ox (%): 95 - Physical Exam General: Alert, In no apparent distress HEENT: Atraumatic, PERRLA, EOMI Neck: Supple, JVD not distended Respiratory: Clear to auscultation bilaterally, Normal air movement Cardiovascular: Regular rate/rhythm, Normal S1 S2 Gastrointestinal: Normal bowel sounds, Tenderness Musculoskeletal: No tenderness Integumentary: No rashes Neurological: Normal speech, Normal tone, Normal affect Lymphatics: No axilla or inguinal lymphadenopathy - Studies Medications List Reviewed: Yes Assessment And Plan - Current Problems (Diagnosis) (1) Acute appendicitis Onset Date: 04/20/18 Current Visit: Yes Status: Acute Plan: Acute appendicitis with generalized peritonitis along with intra-abdominal abscess -general surgery consulted. Recommendation appreciated -patient is status post removal of the appendix POD 3. -currently on IV Levaquin and Flagyl -will continue to monitor closely for any worsening at this time. (2) Peritonitis Current Visit: Yes Status: Acute Plan: See # 1 (3) COPD (chronic obstructive pulmonary disease) Current Visit: Yes Status: Chronic Plan: P.r.bettye Lange (4) HTN (hypertension) Current Visit: Yes Status: Chronic Plan: Restarted on home medication - Plan Currently awaiting clinical improvement at this time. Will continue with IV antibiotics. Will follow up with general surgery regarding diet, patient encouraged to ambulate as much as possible to help pass flatulence Discharge Plan: Home Plan to discharge in: 72 Hours - Code Status/Comfort Care Code Status Assessed: Yes Critical Care: No
[2018-04-22] MEDS: AMITRIPTYLINE 50 MG TAB PO SCH (21:20)
[2018-04-22] MEDS: TRAMADOL HCL 50 MG TAB PO PRN (21:23)
[2018-04-23] MEDS: METRONIDAZOLE 500mg IVPB 500 MG/100 ML BAG IV SCH ×3 (02:00→16:37)
[2018-04-23] MEDS: NA CHLORIDE 0.9% 1,000 ML IV SCH ×3 (02:03→21:39)
[2018-04-23] MEDS ORDERED: NA CHLORIDE 0.9% 0 ML ONE ×2 (05:22→06:53)
--- NOTE | 2018-04-23 05:50 | P.PN ---
Date of Service: 04/23/18 Patient became a little weak while going to restroom. States that she made it to the edge of the bed but then she slid to the floor. Nurse in the room with her when this happened. Patient doing ok. Will recheck labs and continue with PT in am. Monitor neuro and for signs and symptoms of an acute injury
[2018-04-23] MEDS ORDERED: HYDROMORPHONE HCL 1 MG/ML INJ IV ONE (06:01)
[2018-04-23 08:49] LABS: Absolute Lymphocytes (CBC) 0.7 K/uL (0.7-4.9); Absolute Monocytes 1.2 K/uL (0.1-1.3); Absolute Neutrophil 13.4 K/uL (1.8-8.0); Basophils % 0.3 % (0-1.3); Eosinophils % 0.1 % (0-4.4); Hematocrit 42.7 % (36.0-45.0); Lymphocytes % 4.8 % (15.3-44.8); MCH 30.8 pg (27.0-35.0); MCV 90.3 fL (80-100); MPV 7.4 fL (7.6-11.3); Monocytes % 7.9 % (3.3-12.3); RBC Red Blood Cell Count 4.72 M/uL (3.86-4.86)
[2018-04-23 09:11] LABS: Albumin 2.6 g/dL (3.4-5.0); Bilirubin Total 1.4 mg/dL (0.2-1.0); Potassium 5.3 mmol/L (3.5-5.1); Protein, Total 6.9 g/dL (6.4-8.2)
[2018-04-23] MEDS: TIOTROPIUM 5 SPRAYS/INHALER IH SCH (09:31)
[2018-04-23] MEDS: LISINOPRIL 5 MG TAB PO SCH (09:32)
[2018-04-23] MEDS: TRAMADOL HCL 50 MG TAB PO PRN (09:33)
[2018-04-23] MEDS: GABAPENTIN 300 MG CAP PO SCH ×3 (09:34→21:39)
[2018-04-23] MEDS: Levofloxacin500mg IV 500 MG/100 ML BAG IV SCH (11:57)
[2018-04-23 12:22] LABS: Urine Appearance CLEAR; Urine Blood NEGATIVE (NEG); Urine Color ORANGE; Urine Glucose NEGATIVE (NEG); Urine Protein TRACE (NEG); Urine Specific Gravity 1.025 (1.005-1.030)
[2018-04-23 12:37] LABS: Urine Bilirubin 1+ (NEG); Urine Microscopic Reflex ORDER UMIC
[2018-04-23 12:57] LABS: Urine Bacteria 20-50 /HPF (<20); Urine Culture Reflex Order NOT NEEDED; Urine RBC <5 /HPF (NONE SEEN)
--- NOTE | 2018-04-23 14:26 | RAD REPORT ---
EXAM DESCRIPTION: CT - Head Brain Wo Cont - 04/23/2018 2:13 pm CLINICAL HISTORY: Dystonia COMPARISON: None. TECHNIQUE: Computed axial tomography of the head was obtained. IV contrast was not requested. All CT scans are performed using dose optimization technique as appropriate and may include automated exposure control or mA/KV adjustment according to patient size. FINDINGS: An intracranial bleed is not seen . The ventricles are not dilated. No extra-axial fluid collection is noted. Fluid within the sinuses/ mastoids is not seen. IMPRESSION: No acute intracranial abnormality is seen. If patient's symptoms persist MRI of the bra in would be recommended.
--- NOTE | 2018-04-23 16:04 | PN ---
Subjective: Currently the patient is lying in bed. She is sleepy but arousable. She is confused. She does not know where she is at. Denies any chest pain or abdominal pain. No nausea or vomiting. No fever or chills. Objective: Vital Signs: Blood pressure is 134/56, respiratory rate 20, pulse 70, temperature 97.4. The patient is arousable, but confused. Does not look in any distress. HEENT: Atraumatic, normocephalic. PERRLA. Oral mucosa is dry. Neck: Supple. No JVD. No carotid bruits. Chest: Clear to auscultation. Good air entry. Heart: Regular rate and rhythm. S1, S2 normal. No gallop. Abdomen: Soft. Minimal tenderness diffusely. Active bowel sounds. Extremities: No clubbing, no cyanosis, or edema. No calf tenderness. HELEN drain with diffuse amount of fluid. Extremities: No clubbing, no cyanosis, or edema. Neurologic: Deferred as the patient was little bit confused. Laboratory Data: Today showed CBC with white blood cells 15.4, platelets 260. Chemistry with potass ium 5.3, creatinine 0.7, GFR of 84, BUN of 27. Total bilirubin 1.4, down from 1.6. Albumin of 2.6. UA was positive for nitrite on the 15. Assessment And Plan: 1.Acute appendicitis with generalized peritonitis, status post intraabdominal abscess, postop day 4. The patient had appendectomy. Currently on IV antibiotic with Levaquin and Flagyl. Urinalysis was positive. I will proceed with urine culture. 2.Peritonitis, on antibiotic. No fever. White blood cells still high. I will check urinalysis. 3.Confusion, etiology? encephalopathy. I will proceed with CT scan. We will also check a urine cu lture given the white blood cells are going up, I will repeat blood culture. I will check her ammoni a level. Neurology consult requested as the patient's nurse reported some convulsion. 4.History of chronic obstructive pulmonary disease, stable. 5.Hypertension, well controlled on lisinopril. 6.We will start Deep vein thrombosis with Lovenox. MT/MODL Voice ID: [id number] Report ID: [id number]
--- NOTE | 2018-04-23 16:09 | P.PN ---
Subjective Date of Service: 04/23/18 Chief Complaint: Acute perforated appendicitis with abscess Subjective: No new changes Review of Systems General: Weakness Eyes: Unremarkable ENT: Unremarkable Respiratory: Unremarkable Cardiovascular: Unremarkable Gastrointestinal: As per HPI Genitourinary: Unremarkable Musculoskeletal: Unremarkable Physical Examination - Vital Signs Temperature: 97.4 F Blood Pressure: 147/63 Pulse: 70 Respirations: 18 Pulse Ox (%): 94 - Physical Exam General: In no apparent distress, Oriented x3, Cooperative Neck: Supple Respiratory: Normal air movement Cardiovascular: No edema, Normal pulses Musculoskeletal: No erythema, No tenderness, No warmth Integumentary: No rashes, No erythema, No warmth, No cyanosis Neurological: Normal speech ("feel tired") - Studies Medications List Reviewed: Yes Assessment And Plan - Plan Primary MD looking over "new tiredness" Check electrolites HELEN serous, no bleeding or pus
[2018-04-23] MEDS: ENOXAPARIN 40 MG/0.4 ML SQ SCH (16:37)
[2018-04-23] MEDS: AMITRIPTYLINE 50 MG TAB PO SCH (21:39)
[2018-04-24] MEDS: METRONIDAZOLE 500mg IVPB 500 MG/100 ML BAG IV SCH ×3 (02:13→16:33)
[2018-04-24 03:00] LABS: Barbiturates NEGATIVE (NEGATIVE); Benzodiazepines NEGATIVE (NEGATIVE); Cocaine NEGATIVE (NEGATIVE); METHAMPHETAM NEGATIVE (NEGATIVE); Methadone NEGATIVE (NEGATIVE); Opiates POSITIVE (NEGATIVE); Phencyclidine NEGATIVE (NEGATIVE); THC Cannibis NEGATIVE (NEGATIVE)
[2018-04-24 07:54] LABS: Absolute Lymphocytes (CBC) 0.8 K/uL (0.7-4.9); Absolute Monocytes 1.2 K/uL (0.1-1.3); Absolute Neutrophil 8.4 K/uL (1.8-8.0); Basophils % 0.5 % (0-1.3); Eosinophils % 0.8 % (0-4.4); Hematocrit 40.3 % (36.0-45.0); MCH 30.9 pg (27.0-35.0); MCV 89.4 fL (80-100); MPV 7.3 fL (7.6-11.3); Monocytes % 11.4 % (3.3-12.3); RBC Red Blood Cell Count 4.51 M/uL (3.86-4.86)
[2018-04-24 08:08] LABS: BUN Blood Urea Nitrogen 20 mg/dL (7-18); Bicarbonate 25 mmol/L (21-32); Glucose Level 104 mg/dL (74-106); Potassium 4.5 mmol/L (3.5-5.1); Sodium Level 138 mmol/L (136-145)
[2018-04-24] MEDS: TIOTROPIUM 5 SPRAYS/INHALER IH SCH (09:01)
[2018-04-24] MEDS: NA CHLORIDE 0.9% 1,000 ML IV SCH ×2 (09:01→22:24)
[2018-04-24] MEDS: LISINOPRIL 5 MG TAB PO SCH (09:02)
[2018-04-24] MEDS: GABAPENTIN 300 MG CAP PO SCH ×3 (09:02→21:10)
[2018-04-24] MEDS: Levofloxacin500mg IV 500 MG/100 ML BAG IV SCH (11:36)
[2018-04-24] MEDS ORDERED: HYDRALAZINE HCL 20 MG/ML VIAL IV PRN (14:17)
[2018-04-24] MEDS: ENOXAPARIN 40 MG/0.4 ML SQ SCH (16:33)
--- NOTE | 2018-04-24 20:36 | PN ---
Subjective: Patient is lying in bed. She is more awake, but she is bit confused. She is not oriented. She was seen by Dr. Amor yesterday and he is not concerned about surgery related issue. She has no seizure or convulsions this morning. CAT scan of the head yesterday done and was negative. Neurology consult requested, but is still pending. Objective: Vital signs: Today, blood pressure is 160/71, respiratory rate 16, pulse 72, and temperature 97.4. She is saturating 95% on room air. General: The patient is alert, but somewhat confused. She is mumbling, but does not look in any distress. HEENT: Atraumatic, normocephalic. PERRLA. Oral mucosa is dry. Neck: Supple. No JVP. No bruits. Chest: Clear to auscultation. Good air entry. Heart: Regular rate and rhythm. S1, S2 normal. No gallop. Abdomen: Soft. Minimal tenderness diffusely. JVD noted. Yellowish fluid in the collection bottle. Active bowel sounds. Extremities: No clubbing, cyanosis, or edema. No calf tenderness. Neurologic: Again, the patient is alert, but not oriented. She is able to follow commands. She has normal muscle strength and normal sensation. Laboratory Data: Today labs, CBC within normal. Chemistry within normal. Urine tox screen we did yesterday was positive for opiates, which she is being given in the hospital. CT of the head was negative. Assessment And Plan: 1. Acute appendicitis with generalized peritonitis, status post intraabdominal abscess, postoperative day 5. The patient had appendectomy, tolerated procedure well. She is on IV antibiotic with Levaquin and Flagyl. UA was positive as well, but urine culture showed no growth. 2. Peritonitis, on antibiotic with HELEN drain currently. Drain culture was done yesterday, so far no growth. 3. Confusion, improved. The patient is more alert today. CAT scan of the head was negative according to the nurse pt had witnessed convulsions which I could not appreciate. Neurology consult requested, patient is bit confused. ? delirium. I will try to reorient the patient to the day and time, but we will await Neurology input in the a.m. 4. Chronic obstructive pulmonary disease history, stable. 5. Hypertension, not well controlled on lisinopril. I will add hydralazine as needed. 6. Deep vein thrombosis prophylaxis with Lovenox. 7. Discharge plan depend on mental status and if patient is back to baseline and also in terms of antibiotics that would need to be decided by Dr. Amor as outpatient. CARLTON/MUNDO Voice ID: [id number] Report ID: [id number] PIPE
[2018-04-24] MEDS: AMITRIPTYLINE 50 MG TAB PO SCH (21:09)
[2018-04-25] MEDS: METRONIDAZOLE 500mg IVPB 500 MG/100 ML BAG IV SCH ×3 (00:58→18:10)
[2018-04-25] MEDS: LISINOPRIL 5 MG TAB PO SCH (09:18)
[2018-04-25] MEDS: GABAPENTIN 300 MG CAP PO SCH ×3 (09:18→20:20)
[2018-04-25] MEDS: Levofloxacin500mg IV 500 MG/100 ML BAG IV SCH (11:41)
[2018-04-25] MEDS: NA CHLORIDE 0.9% 1,000 ML IV SCH (14:59)
[2018-04-25 15:59] LABS: Absolute Lymphocytes (CBC) 0.8 K/uL (0.7-4.9); Absolute Monocytes 1.3 K/uL (0.1-1.3); Absolute Neutrophil 10.8 K/uL (1.8-8.0); Basophils % 0.3 % (0-1.3); Eosinophils % 0.9 % (0-4.4); Hematocrit 42.6 % (36.0-45.0); Lymphocytes % 6.4 % (15.3-44.8); MCV 91.2 fL (80-100); MPV 7.3 fL (7.6-11.3); Monocytes % 10.1 % (3.3-12.3); RBC Red Blood Cell Count 4.68 M/uL (3.86-4.86)
[2018-04-25 16:03] LABS: BUN Blood Urea Nitrogen 11 mg/dL (7-18); Bicarbonate 27 mmol/L (21-32); Glucose Level 109 mg/dL (74-106); Potassium 4.3 mmol/L (3.5-5.1); Sodium Level 137 mmol/L (136-145)
[2018-04-25] MEDS: ENOXAPARIN 40 MG/0.4 ML SQ SCH (18:10)
--- NOTE | 2018-04-25 18:24 | P.PN ---
Subjective Date of Service: 04/25/18 Chief Complaint: Acute perforated appendicitis with abscess Patient seen and examined at bedside with RN. Chart reviewed. Case discussed with general surgery. Has been having weakness and confusion intermittently. Review of Systems 10-point ROS is otherwise unremarkable Physical Examination - Vital Signs Temperature: 98.3 F Blood Pressure: 143/84 Pulse: 73 Respirations: 18 Pulse Ox (%): 93 - Physical Exam General: Alert, In no apparent distress, Oriented x2 HEENT: Atraumatic, PERRLA, EOMI Neck: Supple, JVD not distended Respiratory: Clear to auscultation bilaterally, Normal air movement Cardiovascular: Regular rate/rhythm, Normal S1 S2 Gastrointestinal: Normal bowel sounds, Tenderness (Abd tenderness generalized) Musculoskeletal: No tenderness Integumentary: No rashes Neurological: Normal speech, Normal tone, Normal affect Lymphatics: No axilla or inguinal lymphadenopathy - Studies Medications List Reviewed: Yes Assessment And Plan - Current Problems (Diagnosis) (1) Acute appendicitis Onset Date: 04/20/18 Current Visit: Yes Status: Acute Plan: Acute appendicitis with generalized peritonitis along with intra-abdominal abscess -general surgery consulted. Recommendation appreciated -patient is status post removal of the appendix POD 6. -currently on IV Levaquin and Flagyl -will continue to monitor closely (2) Peritonitis Current Visit: Yes Status: Acute Plan: See # 1 (3) COPD (chronic obstructive pulmonary disease) Current Visit: Yes Status: Chronic Plan: P.r.bettye Lange (4) HTN (hypertension) Current Visit: Yes Status: Chronic Plan: Restarted on home medication - Plan Currently awaiting clinical improvement at this time. Will continue with IV antibiotics. pending neuro consult. Discharge Plan: Home Plan to discharge in: 24 Hours - Code Status/Comfort Care Code Status Assessed: Yes Critical Care: No
[2018-04-25] MEDS ORDERED: AMITRIPTYLINE 25 MG TAB ONE (20:04)
[2018-04-25] MEDS: AMITRIPTYLINE 50 MG TAB PO SCH (20:21)
[2018-04-26] MEDS: METRONIDAZOLE 500mg IVPB 500 MG/100 ML BAG IV SCH ×2 (00:26→09:11)
--- NOTE | 2018-04-26 00:43 | CON ---
Reason For Consultation: Consultation called because of possible seizure. History Of Present Illness: Ms. Gillespie is a 62-year-old right-handed patient admitted to the hospital with acute appendicitis and peritonitis and being treated for that by the Hospitalist and Surgical Service. Two days ago around , reportedly the patient was going to the restroom an d while doing so had some shaking in her legs. She was standing. The tremors were on both sides and postural as reviewed by the nursing notes. There is a question of the patient not responding quickl y or appropriately, but the patient herself said that she was fully aware of what is going on, and sh e does not believe at all that it was a seizure. She had no tongue biting, no bowel or bladder loss, and no significant confusion. The patient did have a head CT scan after, and it showed no acute isc hemic or hemorrhagic change. There is brain MRI pending. There is also EEG pending. The patient de nies history of seizures or prior seizure-like activity, and no additional tremors or shaking. She h as been up and ambulating with physical therapy and has done perhaps 50 or more feet, and there is no report of any additional activity as documented by the nursing staff. The physical therapy note did indicate that the last attempted ambulation she did was assisted from her chair. Her knees did faustin le, and the therapist will be back to assess her after MRI. However, there was no shaking of the leg s or arms noted. It should be noted that she did have some intermittent twitches when she did try to ambulate with the therapist earlier on the around 9:50 in the morning. Past Medical History: Hypertension, chronic obstructive pulmonary disease. Past Surgical History: Pacemaker placement. Medications: At home, amitriptyline 100 mg at bedtime, gabapentin 3 times daily 600 mg, estriol caridad y, Spiriva inhaler 1 spray daily, Ultram 50 mg daily. Allergies: PENICILLIN. Family History: Positive for heart disease in her father. Social History: Smoked in the past. Resides at home. No alcohol use. Review of Systems: A 10-point review of systems, the patient does have abdominal pain, mild nausea, and some fatigue and lightheadedness and occasionally with ambulation and has diffuse weakness. Physical Examination: Vital Signs: Blood pressure 143/84, pulse 73, respiratory rate 18, temperature 98.3, oxygen saturati on 94%, weight 186 pounds, height 5 feet 4 inches. General: Ms. Gillespie is resting in bed, she has a friend at bedside, in no acute distress. HEENT: She appears to be normocephalic, atraumatic. She does have a redness appearance that is hype remic appearance of her face. No areas of hematoma noted, however. She again is atraumatic. Sclera e anicteric. Oropharynx is moist. Neck: Supple. Chest: Clear. Heart: Regular. Abdomen: Soft. Extremities: Show no significant edema or cyanosis. Neurologic: She is alert and oriented to situation, place, and person. Follows commands appropriate ly. Cranial nerves show no deficits on 2 through 12. Motor examination, she has diffuse weakness. She is able to hold both arms up on count 10 with no focal findings on her upper extremity examinatio n is at least 4/5 proximally and distally. In the lower extremities, she does note some weakness. I n the lower extremities symmetrically, she is able to lift both heels off the bed but just for tempor rima times at least 3+ to 4/5 bilaterally. Sensory examination, she has a stocking-glove loss, light touch, temperature in the arms and legs. Reflexes are trace in upper lower extremities. Coordinatio n is intact in the upper and lower extremities. Gait, she requires moderate to max assist to stand a nd ambulate. Laboratory Studies: White blood cell count 13.4 with 82.3% neutrophils, hemoglobin 14, hematocrit 42 .6, platelets 233. Chemistries: Sodium 137, potassium 4.3, chloride 104, carbon dioxide 27, BUN 11, creatinine 0.5, glucose ranged from 87 to 109, calcium 8.5, total bilirubin 1.4. Liver function soraida dies are normal. Ammonia 29. Her urinalysis from the shows positive nitrites, trace esterase, 1+ bilirubin, 20 to 50 bacteria. Her urine screen is positive for opiates. This was on the [address] head [address] scan indicated no acute ischemic or hemorrhagic change. Chest x-ray, no acute c ardiopulmonary processes. Assessment: Ms. Gillespie is a 62-year-old patient with postural tremors likely related to neuropat hy and diffuse weakness, which is secondary to being in bed and hospitalized with debility. She has no evidence of seizures per the patient's recount and the description of the events in the nursing re port. She does have diffuse weakness on exam, but no focal neurological deficits on examination. He ad CT scan shows no significant abnormalities. Plan: 1.We will follow up brain MRI, stroke protocol to rule out the potential for structural lesion. 2.We will have EEG to rule out a focal epileptiform discharge or focal slow activity or other abnorm alities. 3.We will hold off on antiepileptic medications. 4.Okay to continue with DVT prophylaxis using Lovenox subcutaneously daily. The patient may be plac ed on a small aspirin daily and should have a lipid panel done to rule out dyslipidemia and to furthe r stratify stroke risk and reduce the risk of stroke. ALEX Voice ID: [id number] Report ID: [id number]
[2018-04-26] MEDS: NA CHLORIDE 0.9% 1,000 ML IV SCH ×4 (03:00→22:43)
[2018-04-26] MEDS: TRAMADOL HCL 50 MG TAB PO PRN ×2 (06:11→22:49)
[2018-04-26] MEDS: TIOTROPIUM 5 SPRAYS/INHALER IH SCH ×2 (08:00→09:35)
[2018-04-26] MEDS: LISINOPRIL 5 MG TAB PO SCH (09:00)
[2018-04-26] MEDS: GABAPENTIN 300 MG CAP PO SCH ×3 (09:00→20:54)
[2018-04-26] MEDS: Levofloxacin500mg IV 500 MG/100 ML BAG IV SCH (12:00)
[2018-04-26] MEDS: levoFLOXacin 500 MG TAB PO SCH (13:12)
[2018-04-26] MEDS: metroNIDAZOLE 500 MG TABLET PO SCH ×2 (13:14→20:55)
--- NOTE | 2018-04-26 15:21 | P.PN ---
Subjective Date of Service: 04/26/18 Chief Complaint: Acute perforated appendicitis with abscess Patient seen and examined at bedside with RN. Chart reviewed. Case discussed with general surgery. Has been having weakness and confusion intermittently. This appeared to be better than before. Unable to obtain MRI of the brain at this time due to pacemaker not being able to be compatible with the MRI machine. Pending EEG at this time Review of Systems 10-point ROS is otherwise unremarkable Physical Examination - Vital Signs Temperature: 97.6 F Blood Pressure: 168/78 Pulse: 71 Respirations: 18 Pulse Ox (%): 94 - Physical Exam General: Alert, In no apparent distress, Oriented x2, Demented HEENT: Atraumatic, PERRLA, EOMI Neck: Supple, JVD not distended Respiratory: Clear to auscultation bilaterally, Normal air movement Cardiovascular: Regular rate/rhythm, Normal S1 S2 Gastrointestinal: Normal bowel sounds, No tenderness Musculoskeletal: No tenderness Integumentary: No rashes Neurological: Normal speech, Normal tone, Normal affect Lymphatics: No axilla or inguinal lymphadenopathy - Studies Medications List Reviewed: Yes Assessment And Plan - Current Problems (Diagnosis) (1) Confusion Current Visit: Yes Status: Acute Plan: Patient with history of possible in oxy brain injury during cardiac resuscitation in the past -currently alert and oriented x2 with intermittent confusion -neurology consulted who recommends patient get an MRI EEG done at this time -MRI unable to obtain due to pacemaker -EEG is pending at this time -Patient is most likely at her baseline however will rule out acute abnormality at this time (2) Acute appendicitis Onset Date: 04/20/18 Current Visit: Yes Status: Acute Plan: Acute appendicitis with generalized peritonitis along with intra-abdominal abscess -general surgery consulted. Recommendation appreciated -patient is status post removal of the appendix POD 7. -currently on p.o. Levaquin and Flagyl -will continue to monitor closely (3) Peritonitis Current Visit: Yes Status: Acute Plan: See # 1 (4) COPD (chronic obstructive pulmonary disease) Current Visit: Yes Status: Chronic Plan: P.r.n. DuLatishab (5) HTN (hypertension) Current Visit: Yes Status: Chronic Plan: Restarted on home medication - Plan Currently awaiting clinical improvement at this time. Currently awaiting EEG for intermittent confusion at this time. Discharge Plan: Other Plan to discharge in: 48 Hours - Code Status/Comfort Care Code Status Assessed: Yes Critical Care: No
[2018-04-26] MEDS: ENOXAPARIN 40 MG/0.4 ML SQ SCH (16:36)
[2018-04-26] MEDS: AMITRIPTYLINE 50 MG TAB PO SCH (20:54)
[2018-04-27] MEDS ORDERED: LICE TREATMENT 1 APPL/120 ML BTL TOP ONE (08:00)
[2018-04-27] MEDS: GABAPENTIN 300 MG CAP PO SCH ×3 (09:50→21:32)
[2018-04-27] MEDS: metroNIDAZOLE 500 MG TABLET PO SCH ×3 (09:50→21:32)
[2018-04-27] MEDS: TIOTROPIUM 5 SPRAYS/INHALER IH SCH (09:50)
[2018-04-27] MEDS: levoFLOXacin 500 MG TAB PO SCH (09:50)
[2018-04-27] MEDS: LISINOPRIL 5 MG TAB PO SCH (13:08)
--- NOTE | 2018-04-27 13:44 | P.PN ---
Subjective Date of Service: 04/27/18 Chief Complaint: Acute perforated appendicitis with abscess Patient seen and examined at bedside with RN. Chart reviewed. Case discussed with general surgery. Has been having weakness and confusion intermittently. This appeared to be better than before. Unable to obtain MRI of the brain at this time due to pacemaker not being able to be compatible with the MRI machine. Pending EEG at this time Physical Examination - Vital Signs Temperature: 97 F Blood Pressure: 186/79 Pulse: 72 Respirations: 18 Pulse Ox (%): 92 - Studies Medications List Reviewed: Yes Assessment And Plan - Current Problems (Diagnosis) (1) Confusion Current Visit: Yes Status: Acute Plan: Patient with history of possible in oxy brain injury during cardiac resuscitation in the past -currently alert and oriented x2 with intermittent confusion -neurology consulted who recommends patient get an MRI EEG done at this time -MRI unable to obtain due to pacemaker -EEG is pending at this time -Patient is most likely at her baseline however will rule out acute abnormality at this time (2) Acute appendicitis Onset Date: 04/20/18 Current Visit: Yes Status: Acute Plan: Acute appendicitis with generalized peritonitis along with intra-abdominal abscess -general surgery consulted. Recommendation appreciated -patient is status post removal of the appendix POD 7. -currently on p.o. Levaquin and Flagyl -will continue to monitor closely (3) Peritonitis Current Visit: Yes Status: Acute Plan: See # 1 (4) COPD (chronic obstructive pulmonary disease) Current Visit: Yes Status: Chronic Plan: P.r.n. Nazario (5) HTN (hypertension) Current Visit: Yes Status: Chronic Plan: Restarted on home medication - Plan Currently awaiting clinical improvement at this time. Currently awaiting EEG for intermittent confusion at this time.
[2018-04-27 14:15] LABS: ALT/SGPT 11 U/L (12-78); AST/SGOT 17 U/L (15-37); Albumin 2.2 g/dL (3.4-5.0); BUN Blood Urea Nitrogen 6 mg/dL (7-18); Bicarbonate 31 mmol/L (21-32); Glucose Level 129 mg/dL (74-106); Potassium 4.2 mmol/L (3.5-5.1); Sodium Level 140 mmol/L (136-145)
[2018-04-27 14:17] LABS: Bilirubin Total 0.8 mg/dL (0.2-1.0); Protein, Total 6.2 g/dL (6.4-8.2)
[2018-04-27 14:18] LABS: Alkaline Phosphatase 65 U/L (45-117)
[2018-04-27 15:03] LABS: Absolute Lymphocytes (CBC) 0.8 K/uL (0.7-4.9); Absolute Monocytes 0.9 K/uL (0.1-1.3); Absolute Neutrophil 8.8 K/uL (1.8-8.0); Basophils % 0.3 % (0-1.3); Eosinophils % 1.5 % (0-4.4); Hematocrit 42.1 % (36.0-45.0); Lymphocytes % 7.9 % (15.3-44.8); MCH 30.8 pg (27.0-35.0); MCV 90.6 fL (80-100); MPV 7.3 fL (7.6-11.3); Monocytes % 8.2 % (3.3-12.3); RBC Red Blood Cell Count 4.64 M/uL (3.86-4.86)
--- NOTE | 2018-04-27 15:09 | P.PN ---
Subjective Date of Service: 04/27/18 Chief Complaint: Acute perforated appendicitis with abscess Patient seen and examined at bedside with RN. Chart reviewed. Patient still continues to be with intermittent confusion. Currently participating with physical therapy however minimal participation due to intermittent confusion. Patient also had a lice infestation noted yesterday Review of Systems 10-point ROS is otherwise unremarkable Physical Examination - Vital Signs Temperature: 97 F Blood Pressure: 186/79 Pulse: 72 Respirations: 18 Pulse Ox (%): 92 - Physical Exam General: Alert, In no apparent distress, Other (With intermittent confusion) HEENT: Atraumatic, PERRLA, EOMI Neck: Supple, JVD not distended Respiratory: Clear to auscultation bilaterally, Normal air movement Cardiovascular: Regular rate/rhythm, Normal S1 S2 Gastrointestinal: Normal bowel sounds, No tenderness Musculoskeletal: No tenderness Integumentary: No rashes Neurological: Normal speech, Normal tone, Normal affect Lymphatics: No axilla or inguinal lymphadenopathy - Studies Medications List Reviewed: Yes Assessment And Plan - Current Problems (Diagnosis) (1) Confusion Current Visit: Yes Status: Acute Plan: Patient with history of 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 Recommendation appreciated -patient is status post removal of the appendix POD 8. -currently on p.o. Levaquin and Flagyl -will continue to monitor closely (3) Peritonitis Current Visit: Yes Status: Acute Plan: See # 1 (4) COPD (chronic obstructive pulmonary disease) Current Visit: Yes Status: Chronic Plan: P.r.n. Nazario (5) HTN (hypertension) Current Visit: Yes Status: Chronic Plan: Restarted on home medication - Plan Currently awaiting clinical improvement at this time. Currently awaiting EEG for intermittent confusion at this time. Discharge Plan: Other Plan to discharge in: 48 Hours - Code Status/Comfort Care Code Status Assessed: Yes Critical Care: No
[2018-04-27] MEDS: NA CHLORIDE 0.9% 1,000 ML IV SCH ×2 (15:31→21:32)
[2018-04-27] MEDS: ENOXAPARIN 40 MG/0.4 ML SQ SCH (18:50)
[2018-04-27] MEDS: AMITRIPTYLINE 50 MG TAB PO SCH (21:32)
[2018-04-28] MEDS: LISINOPRIL 5 MG TAB PO SCH (10:14)
[2018-04-28] MEDS: levoFLOXacin 500 MG TAB PO SCH (10:16)
[2018-04-28] MEDS: GABAPENTIN 300 MG CAP PO SCH ×3 (10:16→22:49)
[2018-04-28] MEDS: metroNIDAZOLE 500 MG TABLET PO SCH ×3 (10:16→22:49)
--- NOTE | 2018-04-28 11:48 | P.PN ---
Subjective Date of Service: 04/28/18 Chief Complaint: Acute perforated appendicitis with abscess Patient seen and examined at bedside with RN. Chart reviewed. Patient still continues to be with intermittent confusion. Currently participating with physical therapy however minimal participation due to intermittent confusion. Patient also had a lice infestation noted Review of Systems 10-point ROS is otherwise unremarkable Physical Examination - Vital Signs Temperature: 97.2 F Blood Pressure: 194/84 Pulse: 72 Respirations: 16 Pulse Ox (%): 93 - Physical Exam General: Alert, In no apparent distress, Oriented x2 HEENT: Atraumatic, PERRLA, EOMI Neck: Supple, JVD not distended Respiratory: Clear to auscultation bilaterally, Normal air movement Cardiovascular: Regular rate/rhythm, Normal S1 S2 Gastrointestinal: Normal bowel sounds, No tenderness Musculoskeletal: No tenderness Integumentary: No rashes Neurological: Normal speech, Normal tone, Normal affect Lymphatics: No axilla or inguinal lymphadenopathy - Studies Medications List Reviewed: Yes Assessment And Plan - Current Problems (Diagnosis) (1) Confusion Current Visit: Yes Status: Acute Plan: Patient with history of 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 Appreciated recommendations at this time -MRI unable to obtain due to pacemaker -EEG is pending at this time -Patient is most likely at her baseline however will rule out acute abnormality at this time (2) Acute appendicitis Onset Date: 04/20/18 Current Visit: Yes Status: Acute Plan: Acute appendicitis with generalized peritonitis along with intra-abdominal abscess -general surgery consulted. Recommendation appreciated -patient is status post removal of the appendix POD 9. -currently on p.o. Levaquin and Flagyl -will continue to monitor closely (3) Peritonitis Current Visit: Yes Status: Acute Plan: See # 1 (4) COPD (chronic obstructive pulmonary disease) Current Visit: Yes Status: Chronic Plan: P.r.n. Nazario (5) HTN (hypertension) Current Visit: Yes Status: Chronic Plan: Restarted on home medication - Plan Currently awaiting clinical improvement at this time. Currently awaiting EEG for intermittent confusion at this time. Patient has limited participation with physical therapy due to intermittent confusion. Patient however is on funded and thus home health for placement is going to be challenging at this time. Patient however will require rehab before she goes home as she is currently not able to participate with physical therapy due to intermittent confusion which has been causing her to be debilitated. Discharge Plan: Other Plan to discharge in: 24 Hours - Code Status/Comfort Care Code Status: Full Code Critical Care: No
[2018-04-28] MEDS: NA CHLORIDE 0.9% 1,000 ML IV SCH (12:12)
[2018-04-28] MEDS: TIOTROPIUM 5 SPRAYS/INHALER IH SCH ×2 (12:21→12:35)
--- NOTE | 2018-04-28 12:30 | RAD REPORT ---
EXAM DESCRIPTION: Familia Single View04/28/2018 11:51 am CLINICAL HISTORY: Shortness breath COMPARISON: 04/21/2018 FINDINGS: The lungs appear clear of acute infiltrate. The heart is moderately enlarged. The main pulmonary artery is prominent likely indicating pulmonary arterial hypertension Pacemaker lead is in place IMPRESSION: No acute abnormalities displayed
--- NOTE | 2018-04-28 15:23 | EEG ---
CHART: [id number] TEST ID#: [id number] DATE OF STUDY: 04/26/2018 THE EEG WAS RECORDED PORTABLE IN THE PATIENTS ROOM ON A 17 CHANNEL MACHINE. ELECTRODES WERE APPLIED IN THE USUAL MANNER USING THE INTERNATIONAL 10-20 SYSTEM. THE WAKING BACKGROUND RHYTHM IN THIS RECORD CONSISTS OF POORLY DEVELOPED AND POORLY ORGANIZED WAVES OF 7-8 HZ., MAXIMAL IN THE POSTERIOR HEAD REGIONS WHICH ATTENUATE POORLY WITH EYE OPENING. HIGH VOLTAGE 1.5-3 HZ ACTIVITY IS EXPRESSED IN THE LEFT FRONTAL AND TEMPORAL REGIONS. MODERATE VOLTAGE 4-6 HZ ACTIVITY IS DIFFUSELY EXPRESSED IN THE FRONTAL AND RIGHT CENTRAL REGIONS. THERE ARE NO FOCAL OR LATERALIZING FEATURES. NO EPILEPTIFORM ACTIVITY APPEARS. SLEEP DID NOT OCCUR. HYPERVENTILATION WAS NOT PEFORMED. PHOTIC STIMULATION PRODUCED NO DRIVING BILATERALLY. IMPRESSION: THIS IS A MODERATELY ABNORMAL ROUTINE EEG DUE TO A FOCUS OF HIGH VOLTAGE SLOW (DELTA) ACTIVITY IN THE LEFT CENTRAL AND TEMPORAL REGIONS. FURTHERMORE, THE EEG BACKGROUND IS DIFFUSELY SLOW (DELTA AND THETA). THESE FINDINGS INDICATED THE PREENCE OF A LESION IN THE LEFT CENTRAL AND TEMPORAL REGIONS WITH A SUPERIMPOSED DIFFUSE DISTURBANCE IN CEREBRAL ACTIVITY.
[2018-04-28] MEDS: ENOXAPARIN 40 MG/0.4 ML SQ SCH (17:57)
[2018-04-28] MEDS: AMITRIPTYLINE 50 MG TAB PO SCH (22:49)
[2018-04-29] MEDS: NA CHLORIDE 0.9% 1,000 ML IV SCH ×3 (01:52→17:57)
[2018-04-29 05:12] LABS: Magnesium 1.8 mg/dL (1.8-2.4); Phosphorus 3.1 mg/dL (2.5-4.9)
[2018-04-29] MEDS ORDERED: MAGNESIUM SULFATE 1 gm IVPB 1 GM/100 ML BAG IV ONE (06:30)
[2018-04-29] MEDS: LISINOPRIL 5 MG TAB PO SCH (08:56)
[2018-04-29] MEDS: metroNIDAZOLE 500 MG TABLET PO SCH ×3 (08:56→21:03)
[2018-04-29] MEDS: levoFLOXacin 500 MG TAB PO SCH (08:56)
[2018-04-29] MEDS: TIOTROPIUM 5 SPRAYS/INHALER IH SCH (08:57)
[2018-04-29] MEDS: GABAPENTIN 300 MG CAP PO SCH ×3 (08:57→21:03)
--- NOTE | 2018-04-29 12:13 | P.PN ---
Subjective Date of Service: 04/29/18 Chief Complaint: Acute perforated appendicitis with abscess Patient seen and examined at bedside with RN. Chart reviewed. Patient still continues to be with intermittent confusion. Currently participating with physical therapy. No complaints to offer overnight. Have been trying to get in touch with patient's daughter however has not been successful. Will try again today. Review of Systems 10-point ROS is otherwise unremarkable Physical Examination - Vital Signs Temperature: 97.2 F Blood Pressure: 170/74 Pulse: 71 Respirations: 18 Pulse Ox (%): 94 - Physical Exam General: Alert, In no apparent distress HEENT: Atraumatic, PERRLA, EOMI Neck: Supple, JVD not distended Respiratory: Clear to auscultation bilaterally, Normal air movement Cardiovascular: Regular rate/rhythm, Normal S1 S2 Gastrointestinal: Normal bowel sounds, No tenderness Musculoskeletal: No tenderness Integumentary: No rashes Neurological: Normal speech, Normal tone, Normal affect Lymphatics: No axilla or inguinal lymphadenopathy - Studies Medications List Reviewed: Yes Assessment And Plan - Current Problems (Diagnosis) (1) Confusion Current Visit: Yes Status: Acute Plan: Patient with history of 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 Appreciated recommendations at this time -MRI unable to obtain due to pacemaker -EEG + for central and temporal Lesion -Patient is most likely at her baseline however will rule out acute abnormality at this time (2) Acute appendicitis Onset Date: 04/20/18 Current Visit: Yes Status: Acute Plan: Acute appendicitis with generalized peritonitis along with intra-abdominal abscess -general surgery consulted. Recommendation appreciated -patient is status post removal of the appendix POD 10 -currently on p.o. Levaquin and Flagyl -will continue to monitor closely (3) Peritonitis Current Visit: Yes Status: Acute Plan: See # 1 (4) COPD (chronic obstructive pulmonary disease) Current Visit: Yes Status: Chronic Plan: P.r.n. Nazario (5) HTN (hypertension) Current Visit: Yes Status: Chronic Plan: Restarted on home medication - Plan Currently awaiting clinical improvement at this time. Patient has limited participation with physical therapy due to intermittent confusion. Patient however is non funded and thus home health for placement is going to be challenging at this time. Patient however will require rehab before she goes home as she is currently not able to participate with physical therapy due to intermittent confusion which has been causing her to be debilitated. Discharge Plan: Home Plan to discharge in: 48 Hours - Code Status/Comfort Care Code Status Assessed: Yes Critical Care: No
[2018-04-29] MEDS: ENOXAPARIN 40 MG/0.4 ML SQ SCH (17:59)
[2018-04-29] MEDS: AMITRIPTYLINE 50 MG TAB PO SCH (21:03)
[2018-04-30] MEDS: NA CHLORIDE 0.9% 1,000 ML IV SCH (04:27)
[2018-04-30 05:40] LABS: BUN Blood Urea Nitrogen 3 mg/dL (7-18); Bicarbonate 32 mmol/L (21-32); Glucose Level 111 mg/dL (74-106); Magnesium 1.9 mg/dL (1.8-2.4); Potassium 4.1 mmol/L (3.5-5.1); Sodium Level 140 mmol/L (136-145)
[2018-04-30] MEDS: TIOTROPIUM 5 SPRAYS/INHALER IH SCH ×2 (08:00→11:39)
[2018-04-30] MEDS: levoFLOXacin 500 MG TAB PO SCH (09:01)
[2018-04-30] MEDS: metroNIDAZOLE 500 MG TABLET PO SCH (09:01)
[2018-04-30] MEDS: GABAPENTIN 300 MG CAP PO SCH ×3 (09:01→20:38)
[2018-04-30] MEDS: LISINOPRIL 5 MG TAB PO SCH (09:01)
[2018-04-30] MEDS: ARFORMOTEROL TARTRATE 15 MCG/2 ML VIAL.NEB NEB SCH ×2 (11:33→19:47)
--- NOTE | 2018-04-30 11:37 | P.PN ---
Subjective Date of Service: 04/30/18 Chief Complaint: Hypoxemia Subjective: Improving (Patient is improving doing well she is alert oriented responsive denies any abdominal pain tolerating a diet pain problem seems) Patient is improving doing better she is alert responsive oriented cooperative tolerating a diet main problem he is significant desat patient has a history of COPD Review of Systems General: Weakness Respiratory: Shortness of Breath Physical Examination - Vital Signs Temperature: 97.0 F Blood Pressure: 124/58 Pulse: 70 Respirations: 18 Pulse Ox (%): 96 - Physical Exam General: Alert, Oriented x3 Neck: Supple Respiratory: Clear to auscultation bilaterally, Diminished Cardiovascular: No edema, Normal pulses - Studies Medications List Reviewed: Yes Assessment & Plan - Problems (Diagnosis) (1) COPD (chronic obstructive pulmonary disease) Current Visit: Yes Status: Chronic Plan: Patient is 62 years of age admitted with abdominal abscess she was operated 10 days ago her main problem seems to be significant weakness I suspect that she has significant COPD plan to ambulate start on bronchodilators former heavy smoker white count is normal Dc antibiotics chemistries unremarkable cultures negative needs bedside physical therapy patient is barely able to ambulate Qualifiers: COPD type: unspecified COPD Qualified Code(s): J44.9 - Chronic obstructive pulmonary disease, unspecified
[2018-04-30] MEDS: IPRATROPIUM BROM 0.5MG/2.5ML NEB SCH ×2 (13:37→19:47)
[2018-04-30] MEDS: ENOXAPARIN 40 MG/0.4 ML SQ SCH (17:58)
[2018-04-30] MEDS: AMITRIPTYLINE 50 MG TAB PO SCH (20:38)
[2018-05-01] MEDS: IPRATROPIUM BROM 0.5MG/2.5ML NEB SCH ×3 (02:02→14:00)
[2018-05-01] MEDS: ARFORMOTEROL TARTRATE 15 MCG/2 ML VIAL.NEB NEB SCH (07:50)
[2018-05-01] MEDS: LISINOPRIL 5 MG TAB PO SCH (09:51)
[2018-05-01] MEDS: GABAPENTIN 300 MG CAP PO SCH ×2 (09:51→14:00)
[2018-05-01] MEDS: TIOTROPIUM 5 SPRAYS/INHALER IH SCH (09:51)
--- NOTE | 2018-05-01 10:47 | P.DS ---
Admission Date: 04/19/18 Discharge Date: 05/01/18 Disposition: ROUTINE DISCHARGE Discharge Condition: FAIR Reason for Admission: A ruptured appendix with an abscess Consultations: Dr. Amor Procedures: Laparoscopic appendectomy with intraabdominal abscess drainage, partial cecectomy - Problems (1) COPD (chronic obstructive pulmonary disease) Current Visit: Yes Status: Chronic Qualifiers: COPD type: unspecified COPD Qualified Code(s): J44.9 - Chronic obstructive pulmonary disease, unspecified Brief History of Present Illness: Patient is 62 years of age admitted with ruptured appendix and an intra- abdominal abscess patient did undergo an operation Hospital Course: The patient's course was complicated she developed some confusional changes does have a history of COPD at the time of discharge patient was doing well alert oriented responsive cooperative ambulating labs unremarkable vital signs stable he does take Spiriva at home I have added Dulera patient had a significant improvement on bronchodilators all antibiotics were discontinued yesterday on examination alert oriented responsive cooperative chest diminished air entry. Cardiovascular system os was normal abdomen soft slightly tender positive bowel sounds extremities no edema room-air saturation was 92% on room air Vital Signs/Physical Exam: Temp Pulse Resp BP Pulse Ox 98.1 F 70 18 139/63 98 05/01/18 08:00 05/01/18 09:51 05/01/18 08:00 05/01/18 09:51 05/01/18 08:00 Laboratory Data at Discharge: WBC 10.8 K/uL (4.3-10.9) D 04/27/18 13:32 Hgb 14.3 g/dL (12.0-15.0) 04/27/18 13:32 Hct 42.1 % (36.0-45.0) 04/27/18 13:32 Plt Count 245 K/uL (152-406) 04/27/18 13:32 Sodium 140 mmol/L (136-145) 04/30/18 04:45 Potassium 4.1 mmol/L (3.5-5.1) 04/30/18 04:45 BUN 3 mg/dL (7-18) L 04/30/18 04:45 Creatinine 0.40 mg/dL (0.55-1.3) L 04/30/18 04:45 Glucose 111 mg/dL (74-106) H 04/30/18 04:45 Phosphorus 3.1 mg/dL (2.5-4.9) 04/29/18 04:16 Magnesium 1.9 mg/dL (1.8-2.4) 04/30/18 04:45 Total Bilirubin 0.8 mg/dL (0.2-1.0) 04/27/18 Unknown AST 17 U/L (15-37) 04/27/18 Unknown ALT 11 U/L (12-78) L 04/27/18 Unknown Alkaline Phosphatase 65 U/L (45-117) 04/27/18 Unknown Triglycerides 104 mg/dL (<150) 04/26/18 05:30 Cholesterol 105 mg/dL (<200) 04/26/18 05:30 HDL Cholesterol 16 mg/dL (40-60) L 04/26/18 05:30 Cholesterol/HDL Ratio 6.56 04/26/18 05:30 Amylase 23 U/L (25-115) L 04/19/18 13:36 Lipase 54 U/L (73-393) L 04/19/18 13:36 Home Medications: Amitriptylline 100 mg PO BEDTIME 04/19/18 Gabapentin 1 tab PO TID 04/19/18 Lisinopril [Zestril] 1 tab PO DAILY 04/19/18 Tiotropium [Spiriva Handihaler*] 1 spray IH DAILY 04/19/18 Tramadol HCl [Ultram] 1 tab PO SEECOM PRN 04/19/18 Mometasone/Formoterol [Dulera 200 Mcg/5 Mcg Inhaler] 2 puff IH BID #1 inhaler New Medications: Mometasone/Formoterol [Dulera 200 Mcg/5 Mcg Inhaler] 2 puff IH BID #1 inhaler Patient Discharge Instructions: Patient to follow-up with Dr. Amor in 2 weeks Diet: Regular Activity: Ad torin
[2018-05-01] MEDS ORDERED: DULERA 200/5 (MOMETASONE/FORMOTEROL) INHALER IH SCH (21:00)
== END 2018-05-01 15:34 | disposition home or self-care (01) | DRG 331 ==
LOC: ER 12:28 → ERHOLD 19:43 → 2ND 20:52
PROVIDERS: ADMIT Family Medicine; ATTEND Internal Medicine Sleep Medicine
PROC: 0DBH4ZZ Excision of Cecum, Percutaneous Endoscopic Approach (ICD-10-PCS; 2018-04-19)
PROC: 0DNW4ZZ Release Peritoneum, Percutaneous Endoscopic Approach (ICD-10-PCS; 2018-04-19)
PROC: 0DTJ4ZZ Resection of Appendix, Percutaneous Endoscopic Approach (ICD-10-PCS; principal; 2018-04-19 18:00)
DX: K35.2 Acute appendicitis with generalized peritonitis (principal); I10 Essential (primary) hypertension; J44.9 Chronic obstructive pulmonary disease, unspecified; I48.91 Unspecified atrial fibrillation; K66.0 Peritoneal adhesions (postprocedural) (postinfection); R25.1 Tremor, unspecified; G62.9 Polyneuropathy, unspecified; R53.81 Other malaise; R41.0 Disorientation, unspecified; Z95.0 Presence of cardiac pacemaker; Z23 Encounter for immunization; Z87.891 Personal history of nicotine dependence
CPT/HCPCS: 36415; 70450; 71045; 71046; 74177; 80048; 80053; 80061; 80076; 80307; 81003; 81015; 82140; 82150; 83690; 83735; 84100; 85025; 87040; 87070; 87086; 87088; 88304; 90670; 93005; 94640; 95816; 96361; 96365; 96366; 96368; 96375; 97163; 99285; G0009; J0360; J0692; J1650; J2370; J2405; J2710; J3010; J3475; J7030; J7605; J7606; Q9967

== ENCOUNTER 2018-05-02 13:07 | Inpatient (IN) | payer SELFPAY ==
--- OUTSIDE RECORDS SUMMARY | 2018-05-02 13:18 | XMS REPORT | Summary of Care ---
:1955 Author Organization [facility] Address [address] [place], [place] [address]- Encounter HQ Rachel_lincoln(FIN) [id number] Date(s): 11/18/15 - 11/19/15 [facility] [address] [place] [address]- Discharge Disposition: Home Attending Physician: Jesus Gongora Admitting Physician: Jesus Gongora Referring Physician: Roland Llanes DO Vital Signs Most recent to oldest 1 2 3 [Reference Range]: Height 162.5 cm 162.56 cm (11/18/15 9:30 PM) (11/18/15 8:23 PM) Current Weight 93.892 kg (11/18/15 8:23 PM) Temperature Oral [96.4-99.1 97.9 DegF 98.1 DegF 98.6 DegF DegF] (11/19/15 11:56 AM) (11/19/15 7:33 AM) (11/19/15 5:27 AM) Blood Pressure [90-140/60-90 95/65 mmHg 102/65 mmHg 149/84 mmHg mmHg] (11/19/15 2:26 PM) (11/19/15 2:04 PM) *HI* (11/19/15 12:59 PM) Respiratory Rate [14-20 14 BRMIN 19 BRMIN 15 BRMIN BRMIN] (11/19/15 11:56 AM) (11/19/15 11:30 AM) (11/19/15 11:15 AM) Peripheral Pulse Rate 70 bpm 73 bpm 70 bpm [60-100 bpm] (11/19/15 2:26 PM) (11/19/15 2:04 PM) (11/19/15 12:59 PM) Weight 93.892 kg (11/18/15 9:30 PM) Body Mass Index 35.56 m2 (11/18/15 9:30 PM) Problem List Condition Effective Dates Status Health Status Informant Congestive heart failure(Confirmed) Resolved Graves disease(Confirmed) Resolved Hypertension(Confirmed) Resolved Hypothyroidism(Confirmed) Resolved Pneumonia(Confirmed) Resolved Allergies, Adverse Reactions, Alerts Substance Reaction Severity Status Medicated Wipes1 CHG liquid/wipes Active penicillins Active 1rash, irritation Medications acetaminophen (ANES) Route: IV, Drug form: INJ, ONCE, Stop date: 11/19/15 10:35:00 CDT Start Date: 11/19/15 Stop Date: 11/19/15 Status: CompletedCleocin Phosphate (ANES) Route: IV, Drug form: INJ, ONCE, Stop date: 11/19/15 10:35:00 CDT Start Date: 11/19/15 Stop Date: 11/19/15 Status: Completedclindamycin 900 mg, 50 mL, Route: IVPB, Drug form: INJ, ABXQ8H, Dosing Weight 93.892, kg, Start date: 11/19/15 7:00:00 CDT, Duration: 1 day, Stop date: 11/19/15 23:00:00 CDT Start Date: 11/19/15 Stop Date: 11/19/15 Status: DiscontinuedDextrose 5% with 0.9% NaCl IV 1000 mL 1,000 mL, Rate: 25 ml/hr, Infuse over: 40 hr, Route: IV, Dosing Weight 93.892 kg , Total Volume: 1,000, Start date: 11/19/15 8:38:00 CDT, Duration: 30 day, Stop date: 12/19/15 8:37:00 CDT Start Date: 11/19/15 Stop Date: 11/19/15 Status: DiscontinuedDilaudid 1 mg, 1 mL, Route: IV, Drug form: INJ, Q4H, kg, PRN Pain Score 7-10, Start date : 11/18/15 20:38:00 CDT, Stop date: 12/18/15 20:37:00 CDT Start Date: 11/18/15 Stop Date: 11/19/15 Status: Discontinuedesmolol (ANES) Route: IV, Drug form: INJ, ONCE, Stop date: 11/19/15 10:35:00 CDT Start Date: 11/19/15 Stop Date: 11/19/15 Status: CompletedfentaNYL (ANES) Route: IV, Drug form: INJ, ONCE, Stop date: 11/19/15 10:35:00 CDT Start Date: 11/19/15 Stop Date: 11/19/15 Status: CompletedFlexeril 10 mg, PO, TID, PRN Spasm, 0 Refill(s) Start Date: 11/18/15 Status: OrderedFlexeril 10 mg, 1 tab, Route: PO, Drug form: TAB, TID, Dosing Weight 93.892, kg, PRN Spasm, Start date: 11/19/15 8:50:00 CDT, Duration: 30 day, Stop date: 12/19/15 8 :49:00 CDT Notes: (Same As: Flexeril) Start Date: 11/19/15 Stop Date: 11/19/15 Status: Discontinuedgabapentin 300 mg oral capsule 300 mg=1 cap, PO, Daily, 0 Refill(s) Start Date: 11/18/15 Status: Orderedgabapentin 300 mg oral capsule 300 mg, 1 cap, Route: PO, Drug form: CAP, Daily, Dosing Weight 93.892, kg, Start date: 11/19/15 9:00:00 CDT, Duration: 30 day, Stop date: 12/18/15 9:00:00 CDT Notes: (Same as: Neurontin) Start Date: 11/19/15 Stop Date: 11/19/15 Status: Discontinuedgabapentin 600 mg oral tablet 600 mg=1 tab, PO, Bedtime, 0 Refill(s) Start Date: 11/18/15 Status: Orderedgabapentin 600 mg oral tablet 600 mg, 2 cap, Route: PO, Drug form: CAP, Bedtime, Dosing Weight 93.892, kg, Start date: 11/19/15 21:00:00 CDT, Duration: 30 day, Stop date: 12/18/15 21:00: 00 CDT Notes: (Same as: Neurontin) Start Date: 11/19/15 Stop Date: 11/19/15 Status: CanceledLactated Ringers Injection IV (ANES) (ANES) Route: IV, Total Volume: 1,000, Start date: 11/19/15 9:49:00 CDT, Stop date: 07/24 10:49:00 CDT Start Date: 11/19/15 Stop Date: 11/19/15 Status: CompletedLactated Ringers Injection IV 1000 mL 1,000 mL, Rate: 25 ml/hr, Infuse over: 40 hr, Route: IV, Dosing Weight 93.892 kg , Total Volume: 1,000, Start date: 11/19/15 8:38:00 CDT, Duration: 30 day, Stop date: 12/19/15 8:37:00 CDT Start Date: 11/19/15 Stop Date: 11/19/15 Status: Discontinuedlevothyroxine 50 microgram, 1 tab, Route: PO, Drug form: TAB, Q630AM, Dosing Weight 93.892, kg , Start date: 11/20/15 6:30:00 CDT, Duration: 30 day, Stop date: 12/19/15 6:30: 00 CDT Notes: Take 1 hour before or 2 hours after meal; Enteral feeds may interefere with the absorption ofthis medication.(Same as:Levothroid, Synthroid) Start Date: 11/20/15 Stop Date: 11/19/15 Status: Canceledlevothyroxine 50 mcg (0.05 mg) oral tablet 50 microgram=1 tab, PO, Daily, 0 Refill(s) Start Date: 11/18/15 Status: Orderedlidocaine (ANES) Route: IV, Drug form: INJ, ONCE, Stop date: 11/19/15 10:35:00 CDT Start Date: 11/19/15 Stop Date: 11/19/15 Status: Completedlisinopril 2.5 mg, 0.5 tab, Route: PO, Drug form: TAB, BID, Dosing Weight 93.892, kg, Start date: 11/19/15 9:00:00 CDT, Duration: 30 day, Stop date: 12/18/15 21:00: 00 CDT Notes: (Same as: Prinivil, Zestril) Start Date: 11/19/15 Stop Date: 11/19/15 Status: Discontinuedlisinopril 2.5 mg oral tablet 2.5 mg=1 tab, PO, BID, 0 Refill(s) Start Date: 11/18/15 Status: Orderedmetoprolol tartrate 25 mg, 1 tab, Route: PO, Drug form: TAB, BID, Dosing Weight 93.892, kg, Start date: 11/19/15 9:00:00CDT, Duration: 30 day, Stop date: 12/18/15 21:00:00 CDT Notes: (Same as: Lopressor) Start Date: 11/19/15 Stop Date: 11/19/15 Status: Discontinuedmetoprolol tartrate 25 mg, PO, BID, 0 Refill(s) Start Date: 11/18/15 Status: Orderedmidazolam (ANES) Route: IV, Drug form: SOLN, ONCE, Stop date: 11/19/15 10:34:00 CDT Start Date: 11/19/15 Stop Date: 11/19/15 Status: CompletedNorco 7.5/325 oral tablet 2 tab, Route: PO, Drug Form: TAB, kg, Q4H, PRN Pain Score 7-10, Start date: 06/24 20:38:00 CDT, Duration: 30 day, Stop date: 12/18/15 20:37:00 CDT Notes: Same as [place] 325-7.5mg Do not exceed 4gm/day of acetaminophen. Start Date: 11/18/15 Stop Date: 11/19/15 Status: DiscontinuedNorco 7.5/325 oral tablet 1 tab, Route: PO, Drug Form: TAB, kg, Q4H, PRN Pain Score 4-6, Start date: 11/17 20:38:00 CDT, Duration: 30 day, Stop date: 12/18/15 20:37:00 CDT Notes: Same as [place] 325-7.5mg Do not exceed 4gm/day of acetaminophen. Start Date: 11/18/15 Stop Date: 11/19/15 Status: DiscontinuedNormosol-R PH 7.4 1000 mL 1,000 mL, Rate: 25 ml/hr, Infuse over: 40 hr, Route: IV, Dosing Weight 93.892 kg , Total Volume: 1,000, Start date: 11/19/15 8:38:00 CDT, Duration: 30 day, Stop date: 12/19/15 8:37:00 CDT Start Date: 11/19/15 Stop Date: 11/19/15 Status: Discontinuedondansetron (ANES) Route: IV, Drug form: INJ, ONCE, Stop date: 11/19/15 10:35:00 CDT Start Date: 11/19/15 Stop Date: 11/19/15 Status: Completedphenylephrine (ANES) Route: IV, Drug form: INJ, ONCE, Stop date: 11/19/15 10:35:00 CDT Start Date: 11/19/15 Stop Date: 11/19/15 Status: Completedpropofol (ANES) Route: IV, Drug form: INJ, ONCE, Stop date: 11/19/15 10:35:00 CDT Start Date: 11/19/15 Stop Date: 11/19/15 Status: CompletedSodium Chloride 0.9% IV 1000 mL 1,000 mL, Rate: 25 ml/hr, Infuse over: 40 hr, Route: IV, Dosing Weight 93.892 kg , Total Volume: 1,000, Start date: 11/19/15 8:38:00 CDT, Duration: 30 day, Stop date: 12/19/15 8:37:00 CDT Start Date: 11/19/15 Stop Date: 11/19/15 Status: DiscontinuedValium 5 mg, 1 mL, Route: IV, Drug form: INJ, Q6H, kg, PRN Spasm, Start date: 11/18/15 20:43:00 CDT, Stop date: 12/18/15 20:42:00 CDT Notes: (Same as: Valium)WASTE: F/P - Black; E - White/Blue Start Date: 11/18/15 Stop Date: 11/19/15 Status: DiscontinuedXarelto 20 mg oral tablet 20 mg=1 tab, PO, Daily, # 30 tab, 3 Refill(s) Start Date: 11/18/15 Status: Ordered Results ELECTROLYTES Most recent to oldest [Reference Range]: 1 Sodium Lvl [135-145 mEq/L] 135 mEq/L (11/18/15 11:56 PM) Potassium Lvl [3.5-5.1 mEq/L] 4.7 mEq/L (11/18/15 11:56 PM) Chloride Lvl [95-109 mEq/L] 102 mEq/L (11/18/15 11:56 PM) CO2 [24-32 mEq/L] 20 mEq/L *LOW* (11/18/15 11:56 PM) AGAP [10.0-20.0 mEq/L] 17.7 mEq/L (11/18/15 11:56 PM) CHEM PANEL Most recent to oldest [Reference Range]: 1 Creatinine Lvl [0.50-1.40 mg/dL] 0.91 mg/dL (11/18/15 11:56 PM) eGFR 68 mL/min/1.73m2 1 *NA* (11/18/15 11:56 PM) BUN [7-22 mg/dL] 19 mg/dL (11/18/15 11:56 PM) Glucose Lvl [70-99 mg/dL] 133 mg/dL *HI* (11/18/15 11:56 PM) Calcium Lvl [8.5-10.5 mg/dL] 8.2 mg/dL *LOW* (11/18/15 11:56 PM) 1Result Comment: The eGFR is calculated using the CKD-EPI formula. In most young , healthy individualsthe eGFR will be >90 mL/min/1.73m2. The eGFR declines with age. An eGFR of 60-89 may be normal in some populations, particularly the elderly, for whom the CKD-EPI formula has not been extensively validated. Use of the eGFR is not recommended in the following populations: Individuals with unstable creatinine concentrations, including patients and those with serious co-morbid conditions. Patients with extremes in muscle mass or diet. The data above are obtained from the National Kidney Disease Education Program ( NKDEP) which additionally recommends that when the eGFR is used in patients with extremes of body mass index for purposesof drug dosing, the eGFR should be multiplied by the estimated BMI.HEMATOLOGY Most recent to oldest [Reference Range]: 1 WBC [3.7-10.4 K/CMM] 11.4 K/CMM *HI* (11/18/15 11:56 PM) RBC [4.20-5.40 M/CMM] 4.93 M/CMM (11/18/15 11:56 PM) Hgb [12.0-16.0 g/dL] 14.7 g/dL (11/18/15 11:56 PM) Hct [36.0-48.0 %] 44.9 % (11/18/15 11:56 PM) MCV [80.0-98.0 fL] 91.1 fL (11/18/15 11:56 PM) MCH [27.0-31.0 pg] 29.9 pg (11/18/15 11:56 PM) MCHC [32.0-36.0 g/dL] 32.8 g/dL (11/18/15 11:56 PM) RDW [11.5-14.5 %] 13.7 % (11/18/15 11:56 PM) Platelet [133-450 K/CMM] 163 K/CMM (11/18/15 11:56 PM) MPV [7.4-10.4 fL] 8.0 fL (11/18/15 11:56 PM) Segs [45.0-75.0 %] 79.3 % *HI* (11/18/15 11:56 PM) Lymphocytes [20.0-40.0 %] 12.7 % *LOW* (11/18/15 11:56 PM) Monocytes [2.0-12.0 %] 7.5 % (11/18/15 11:56 PM) Eosinophils [0.0-4.0 %] 0.2 % (11/18/15 11:56 PM) Basophils [0.0-1.0 %] 0.3 % (11/18/15 11:56 PM) Segs-Bands # [1.5-8.1 K/CMM] 9.0 K/CMM *HI* (11/18/15 11:56 PM) Lymphocytes # [1.0-5.5 K/CMM] 1.4 K/CMM (11/18/15 11:56 PM) Monocytes # [0.0-0.8 K/CMM] 0.8 K/CMM (11/18/15 11:56 PM) Immunizations No data available for this section Procedures Procedure Date Related Diagnosis Body Site Ankle joint operations Cataract surgery Hysterectomy Pacemaker care Social History Social History Type Response Alcohol Never Smoking Status Former smoker; Type: Cigarettes; Started at age: 13.0; Stopped at age: 58; Previous treatment: None; Ready to change: Yes; Concerns about tobacco use in household: No; Exposure to Tobacco Smoke None; Cigarette Smoking Last 365 Days No; Reg Smoking Cessation Counseling No Assessment and Plan Extracted from: Title: Clinical Document Author: Gamal Jose MD Date: 11/19/15 Patient in the OR We will follow in post op
--- OUTSIDE RECORDS SUMMARY | 2018-05-02 13:18 | XMS REPORT | Continuity of Care Document ---
:1955 Author Organization Interface Problems Problem Status Onset Classification Date Comments Source Date Reported UNK Active 11/22/[address] RIGHT HUMERAL FX Active 11/18/19 16 [facility] Congestive heart Resolved Problem 11/22/2015 failure [place] Graves disease Resolved Problem 11/22/2015 [facility] Hypertension Resolved Problem 11/22/2015 [facility] Hypothyroidism Resolved Problem 11/22/2015 [facility] Pneumonia Resolved Problem 11/22/2015 [facility] UNSP FRACTURE OF Active UPPER END OF [facility] RIGHT SONIA Medications Medication Details Route Status Patient Ordering Order Source Instructions Provider Date Thyroxine 50 No Longer microgram, 1 Active 016 [facility] tab, Route: PO, Drug form: TAB, Q630AM, Dosing Weight 93.892, kg, Start date: 11/20/15 6:30:00 CDT, Duration: 30 day, Stop date: 12/19/15 6:30:00 CDTNotes: Take 1 hour before or 2 hours after meal; Enteral feeds may interefere with the absorption of this medication.( Same as:Levothroi d, Synthroid) gabapentin 600 600 mg, 2 Inactive MH MG Oral Tablet cap, Route: [facility] PO, Drug form: CAP, Bedtime, Dosing Weight 93.892, kg, Start date: 11/19/15 21:00:00 CDT, Duration: 30 day, Stop date: 12/18/15 21:00:00 CDTNotes: (Same as: Neurontin) lidocaine Route: IV, Inactive MH (ANES) Drug form: [facility] INJ, ONCE, Stop date: 11/19/15 10:35:00 CDT fentaNYL (ANES) Route: IV, Inactive MH Drug form: [facility] INJ, ONCE, Stop date: 11/19/15 10:35:00 CDT Cleocin Route: IV, Inactive Phosphate Drug form: [facility] (ANES) INJ, ONCE, Stop date: 11/19/15 10:35:00 CDT phenylephrine Route: IV, Inactive (ANES) Drug form: [facility] INJ, ONCE, Stop date: 11/19/15 10:35:00 CDT propofol (ANES) Route: IV, Inactive Drug form: [facility] INJ, ONCE, Stop date: 11/19/15 10:35:00 CDT ondansetron Route: IV, Inactive (ANES) Drug form: [facility] INJ, ONCE, Stop date: 11/19/15 10:35:00 CDT esmolol (ANES) Route: IV, Inactive Drug form: [facility] INJ, ONCE, Stop date: 11/19/15 10:35:00 CDT acetaminophen Route: IV, Inactive (ANES) Drug form: [facility] INJ, ONCE, Stop date: 11/19/15 10:35:00 CDT midazolam Route: IV, Inactive (ANES) Drug form: [facility] SOLN, ONCE, Stop date: 11/19/15 10:34:00 CDT Lactated Route: IV, Inactive Ringers Total [facility] Injection IV Volume: (ANES) (ANES) 1,000, Start date: 11/19/15 9:49:00 CDT, Stop date: 11/19/15 10:49:00 CDT metoprolol 25 mg, 1 Inactive tartrate tab, Route: [address] [place] [address] PO, Drug form: TAB, BID, Dosing Weight 93.892, kg, Start date: 11/19/15 9:00:00 CDT, Duration: 30 day, Stop date: 12/18/15 21:00:00 CDTNotes: (Same as: Lopressor) Lisinopril 2.5 mg, 0.5 Inactive tab, Route: [address] [place] [address] PO, Drug form: TAB, BID, Dosing Weight 93.892, kg, Start date: 11/19/15 9:00:00 CDT, Duration: 30 day, Stop date: 12/18/15 21:00:00 CDTNotes: (Same as: Prinivil, Zestril) gabapentin 300 300 mg, 1 Inactive MH MG Oral Capsule cap, Route: 016 PO, Drug form: CAP, Daily, Dosing Weight 93.892, kg, Start date: 11/19/15 9:00:00 CDT, Duration: 30 day, Stop date: 12/18/15 9:00:00 CDTNotes: (Same as: Neurontin) Flexeril 10 mg, 1 Inactive tab, Route: PO, Drug form: TAB, TID, Dosing Weight 93.892, kg, PRN Spasm, Start date: 11/19/15 8:50:00 CDT, Duration: 30 day, Stop date: 12/19/15 8:49:00 CDTNotes: (Same As: Flexeril) Normosol-R 1,000 mL, Inactive Rate: 25 016 [facility] ml/hr, Infuse over: 40 hr, Route: IV, Dosing Weight 93.892 kg, Total Volume: 1,000, Start date: 11/19/15 8:38:00 CDT, Duration: 30 day, Stop date: 12/19/15 8:37:00 CDT Glucose 50 1,000 mL, Inactive MG/ML / Sodium Rate: 016 Chloride 0.154 ml/hr, MEQ/ML Infuse over: Injectable 40 hr, Solution Route: IV, Dosing Weight 93.892 kg, Total Volume: 1,000, Start date: 11/19/15 8:38:00 CDT, Duration: 30 day, Stop date: 12/19/15 8:37:00 CDT Calcium 1,000 mL, Inactive Chloride 0.0014 Rate: 25 016 [facility] MEQ/ML / ml/hr, Potassium Infuse over: Chloride 0.004 40 hr, MEQ/ML / Sodium Route: IV, Chloride 0.103 Dosing MEQ/ML / Sodium Weight Lactate 0.028 93.892 kg, MEQ/ML Total Injectable Volume: Solution 1,000, Start date: 11/19/15 8:38:00 CDT, Duration: 30 day, Stop date: 12/19/15 8:37:00 CDT Sodium Chloride 1,000 mL, Inactive MH 0.154 MEQ/ML Rate: 25 [facility] Injectable ml/hr, Solution Infuse over: 40 hr, Route: IV, Dosing Weight 93.892 kg, Total Volume: 1,000, Start date: 11/19/15 8:38:00 CDT, Duration: 30 day, Stop date: 12/19/15 8:37:00 CDT Clindamycin 900 mg, 50 Inactive mL, Route: [address] [place] [address] IVPB, Drug form: INJ, ABXQ8H, Dosing Weight 93.892, kg, Start date: 11/19/15 7:00:00 CDT, Duration: 1 day, Stop date: 11/19/15 23:00:00 CDT Flexeril 10 mg, PO, Active TID, PRN 016 [facility] Spasm, 0 Refill(s) rivaroxaban 20 20 mg=1 tab, Active MH MG Oral Tablet PO, Daily, # 016 [facility] [Xarelto] 30 tab, 3 Refill(s) gabapentin 600 600 mg=1 Active MG Oral Tablet tab, PO, [facility] Bedtime, 0 Refill(s) gabapentin 300 300 mg=1 Active MG Oral Capsule cap, PO, [facility] Daily, 0 Refill(s) levothyroxine 50 Active 50 mcg (0.05 microgram=1 [facility] mg) oral tablet tab, PO, Daily, 0 Refill(s) lisinopril 2.5 2.5 mg=1 Active mg oral tablet tab, PO, [address] [place] [address] BID, 0 Refill(s) metoprolol 25 mg, PO, Active tartrate BID, [address] [place] [address] Refill(s) Valium 5 mg, 1 mL, No Longer Route: IV, Active [facility] Drug form: INJ, Q6H, kg, PRN Spasm, Start date: 11/18/15 20:43:00 CDT, Stop date: 12/18/15 20:42:00 CDTNotes: (Same as: Valium) WASTE: F/P - Black; E - White/Blue Dilaudid 1 mg, 1 mL, No Longer Route: IV, Active [facility] Drug form: INJ, Q4H, kg, PRN Pain Score 7-10, Start date: 11/18/15 20:38:00 CDT, Stop date: 12/18/15 20:37:00 CDT Acetaminophen 2 tab, No Longer MH 325 MG / Route: PO, Active 016 [facility] Hydrocodone Drug Form: Bitartrate 7.5 TAB, kg, MG Oral Tablet Q4H, PRN [[place] 7.5/325] Pain Score 7-10, Start date: 11/18/15 20:38:00 CDT, Duration: 30 day, Stop date: 12/18/15 20:37:00 CDTNotes: Same as [place] 325-7.5mg Do not exceed 4gm/day of acetaminophe n. Allergies, Adverse Reactions, Alerts Substance Category Reaction Severity Reaction Status Date Comments Source type Reported Medicated Assertion CHG Allergy to Active rash, MH Wipes<sup>1< liquid/wi substance irritation [place] /sup> pes t penicillins Assertion Drug Active MH allergy [place] t Immunizations Immunization Date Given Site Status Last Updated Comments Source Results Order Name Results Value Reference Date Interpretation Comments Source Range Humerus 2 Humerus 2 A fluoroscopic procedure was performed outside the Radiology Department. This report is generated for hospital's billing purposes only. 11/18 - views DX views DX /2015 - [facility] Read by: Kvng Nguyen MD Dictated Date/time: 11/19/15 17:07 Electronically Signed by: Kvng Nguyen MD 11/19/15 17:07 FINAL REPORT ELECTROLYT AGAP 17.7 meq/L 10.0 - 11/18 ES 20.0 [facility] ELECTROLYT Chloride Lvl 102 meq/L 95 - 109 11/18 ES [facility] ELECTROLYT Potassium 4.7 meq/L 3.5 - 5.1 11/18 ES Lvl /2015 [facility] ELECTROLYT Sodium Lvl 135 meq/L 135 - 145 11/18 ES [facility] ELECTROLYT CO2 20 meq/L 24 - 32 11/18 ES [facility] ELECTROLYT Creatinine 0.91 mg/dL 0.50 - 11/18 ES Lvl 1.40 [facility] ELECTROLYT Calcium Lvl 8.2 mg/dL 8.5 - 10.5 11/18 [facility] ELECTROLYT eGFR 68 11/18 Result Comment: The eGFR is calculated using the CKD-EPI formula. In most young, healthy individuals the eGFR will be >90 mL/ min/1.73m2. The eGFR declines with age. An eGFR of 60-89 may be normal in mL/min/1. some populations, particularly the elderly, for whom the CKD-EPI formula has not been extensively validated. Use of the eGFR is not recommended in the following populations: [facility] 3m2 Individuals with unstable creatinine concentrations, including patients and those with serious co-morbid conditions. Patients with extremes in muscle mass or diet. The data above are obtained from the National Kidney Disease Education Program (NKDEP) which additionally recommends that when the eGFR is used in patients with extremes of body mass index for purposes of drug dosing, the eGFR should be multiplied by the estimated BMI. ELECTROLYT Glucose Lvl 133 mg/dL 70 - 99 11/18 [facility] ELECTROLYT BUN 19 mg/dL 7 - 22 11/18 [facility] HEMATOLOGY MCV 91.1 fL 80.0 - 11/18 98.0 [facility] MCH 29.9 pg 27.0 - 11/18 31.0 [facility] Hgb 14.7 g/dL 12.0 - 11/18 16.0 [facility] HEMATOLOGY RBC 4.93 M/CMM 4.20 - 11/18 5.40 /2016 [facility] HEMATOLOGY MPV 8.0 fL 7.4 - 10.4 11/18 [facility] HEMATOLOGY Platelet 163 K/CMM 133 - 450 11/18 [facility] HEMATOLOGY Hct 44.9 % 36.0 - 11/18 48.0 [facility] WBC 11.4 K/CMM 3.7 - 10.4 11/18 [facility] MCHC 32.8 g/dL 32.0 - 11/18 36.0 [facility] RDW 13.7 % 11.5 - 11/18 14. [facility] HEMATOLOGY Eosinophils 0.2 % 0.0 - 4.0 11/18 [facility] Monocytes # 0.8 K/CMM 0.0 - 0.8 11/18 [facility] HEMATOLOGY Segs 79.3 % 45.0 - 11/18 75.0 /2016 [facility] HEMATOLOGY Lymphocytes 12.7 % 20.0 - 11/18 40.0 /2016 [facility] HEMATOLOGY Segs-Bands # 9.0 K/CMM 1.5 - 8.1 11/18 /2015 [facility] HEMATOLOGY Monocytes 7.5 % 2.0 - 12.0 11/18 /2015 [facility] HEMATOLOGY Basophils 0.3 % 0.0 - 1.0 11/18 [facility] HEMATOLOGY Lymphocytes 1.4 K/CMM 1.0 - 5.5 11/18 # /2016 [facility] Chest Chest 1view Patient Name: DAWNA ARAUJO 11/17 - 1view DX DX /2015 - [facility] : 1955; Age: 60 years y/o Female MR: [id number] Read by: Brett Montanez MD Dictated Date/time: 11/18/15 22:37 Electronically Signed by: Brett Montanez MD 11/18/15 22:39 FINAL REPORT Study: Chest 1view DX dated 11/18/2015 Clinical Indication: Hypertension; Comparison: None Left transvenous pacer in place with lead in expected region of the right ventricle. Enlarged cardiac silhouette. Aortic calcification. Mediastinal structures otherwise unremarkable. Lateral blunting of the left costophrenic angle may represent small left pleural effusion or pleural thickening. No focal infiltrates within the lungs, no edema and no pneumothorax. Degenerative changes are seen about the thoracic spine. SL: CSODERSTROM- Vital Signs Vital Sign Value Date Comments Source Systolic (mm Hg) 95 11/19/2015 [facility] Diastolic (mm Hg) 65 11/19/2015 [facility] Heart Rate 70 11/19/2015 [facility] Heart Rate 73 11/19/2015 [facility] Systolic (mm Hg) 102 11/19/2015 [facility] Diastolic (mm Hg) 65 11/19/2015 [facility] Systolic (mm Hg) 149 11/19/2015 [facility] Diastolic (mm Hg) 84 11/19/2015 [facility] Heart Rate 70 11/19/2015 [facility] Temperature Oral (F) 97.9 F 11/19/2015 [facility] Respitory Rate 14 11/19/2015 [facility] Respitory Rate 19 11/19/2015 [facility] Respitory Rate 15 11/19/2015 [facility] Temperature Oral (F) 98.1 F 11/19/2015 [facility] Temperature Oral (F) 98.6 F 11/19/2015 [facility] Weight 93.892 11/19/2015 [facility] BMI Calculated 35.56 11/19/2015 [facility] Height 162.5 cm 11/19/2015 [facility] Height 162.56 cm 11/19/2015 [facility] Encounters Location Location Encounter Encounter Reason Attending ADM DC Status Source Details Type Number For Provider Date Date Visit [facility] Inpatient [id number] [place] 11/18 11/18 [place] /2015 [facility] Procedures Procedure Code Date Perfomer Comments Source Ankle joint [id number] [facility] operations Cataract surgery [id number] [facility] Hysterectomy [id number] [facility] Pacemaker care [id number] [facility]
[2018-05-02 14:18] LABS: Absolute Lymphocytes (CBC) 0.8 K/uL (0.7-4.9); Absolute Monocytes 0.8 K/uL (0.1-1.3); Absolute Neutrophil 7.1 K/uL (1.8-8.0); Basophils % 0.8 % (0-1.3); Eosinophils % 0.7 % (0-4.4); Hematocrit 41.3 % (36.0-45.0); Lymphocytes % 9.3 % (15.3-44.8); MCH 31.2 pg (27.0-35.0); MCV 90.6 fL (80-100); MPV 7.5 fL (7.6-11.3); Monocytes % 8.8 % (3.3-12.3); RBC Red Blood Cell Count 4.56 M/uL (3.86-4.86)
[2018-05-02 14:19] LABS: Protime INR 1.34
--- NOTE | 2018-05-02 14:33 | RAD REPORT ---
EXAM DESCRIPTION: [facility] Single View05/02/2018 2:21 pm CLINICAL HISTORY: Chest pain COMPARISON: April 28, 2018 FINDINGS: The lungs appear clear of acute infiltrate. The heart is mildly enlarged. The main pulmon rima artery is prominent. Pacemaker leads in place IMPRESSION: No acute abnormalities displayed
[2018-05-02 14:38] LABS: ALT/SGPT 11 U/L (12-78); AST/SGOT 23 U/L (15-37); Albumin 2.4 g/dL (3.4-5.0); Alkaline Phosphatase 72 U/L (45-117); BUN Blood Urea Nitrogen 3 mg/dL (7-18); Bicarbonate 36 mmol/L (21-32); Bilirubin Direct 0.4 mg/dL (0-0.2); Bilirubin Total 0.8 mg/dL (0.2-1.0); Glucose Level 93 mg/dL (74-106); Lipase 79 U/L (73-393); NT PRO-BNP 8712 pg/mL (<125); Potassium 4.1 mmol/L (3.5-5.1); Protein, Total 7.2 g/dL (6.4-8.2); Sodium Level 139 mmol/L (136-145); Thyroid Stimulating Hormone 0.459 uIU/mL (0.360-3.740); Troponin (Emerg Dept Use Only) < 0.02 ng/mL (0.0-0.045)
[2018-05-02] MEDS ORDERED: NA CHLORIDE 0.9% 1,000 ML ONE (14:57)
[2018-05-02] MEDS ORDERED: LEVALBUTEROL 1.25 MG/3 ML NEB ONE (15:37)
[2018-05-02] MEDS ORDERED: IPRATROPIUM BROM 0.5MG/2.5ML ONE (15:37)
[2018-05-02] MEDS ORDERED: FAMOTIDINE 20 MG/2 ML VIAL IV ONE (15:38)
--- NOTE | 2018-05-02 15:40 | EKG ---
Test Date: 2018-05-02 Test Time: 13:19:52 Photocopying Machine Operator: ROSITA MEASUREMENT RESULTS: Intervals: Rate: 70 MI: QRSD: 162 QT: 474 QTc: 511 [place]: P: MI: QRS: -63 T: 85 INTERPRETIVE STATEMENTS: Electronic ventricular pacemaker Compared to ECG 04/19/2018 16:10:13 No significant changes Electronically Signed On 05-02-18 15:39:18 CDT by Pierce Mcgrath
--- NOTE | 2018-05-02 15:46 | EDPHYS ---
Physician Documentation [facility] Name: Blanquita Gillespie Age: 62 yrs Sex: Female : 1955 Arrival Date: 05/02/2018 Time: 13:14 Bed 30 Private MD: ED Physician Chris Gaspar HPI: 05/02 15:38 This 62 yrs old Female presents to ER via EMS with complaints of Edema. arabella 15:38 The patient presents with decreased range of motion, pain, spasm. The complaints affect arabella the right leg and left leg. Context: The problem was sustained at an unknown site. Onset: The symptoms/episode began/occurred 3 day(s) ago. Modifying factors: The symptoms are alleviated by nothing. Associated signs and symptoms: The patient has no apparent associated signs or symptoms. The patient presents with abdominal pain in the upper abdomen, in the lower abdomen. Onset: The symptoms/episode began/occurred 2 day(s) ago, sp appendectomy , 1 week ago. weak, swelling, sp appy, hx copd. Historical: - Allergies: 13:20 PENICILLINS; tl3 13:20 Fish Containing Products; tl3 - Home Meds: 13:20 gabapentin 600 mg Oral tab 1 tab 3 times per day [Active]; amitriptyline 100 mg Oral tl3 tab 1 tab nightly [Active]; lisinopril 2.5 mg Oral tab 1 tab once daily [Active]; tramadol 50 mg Oral tab 1 tab every 4-6 hours [Active]; - PMHx: 13:20 Hypertension; tl3 - PSHx: 13:20 pacemaker; tl3 - Immunization history:: Adult Immunizations up to date. - Social history:: Smoking status: Patient/guardian denies using tobacco, never smoked. - Ebola Screening: : No symptoms or risks identified at this time. - Family history:: not pertinent. ROS: 15:38 Constitutional: Negative for fever, chills, and weight loss, Eyes: Negative for injury, arabella pain, redness, and discharge, ENT: Negative for injury, pain, and discharge, Neck: Negative for injury, pain, and swelling, Cardiovascular: Negative for chest pain, palpitations, and edema, Respiratory: Negative for shortness of breath, cough, wheezing, and pleuritic chest pain, Back: Negative for injury and pain, : Negative for injury, bleeding, discharge, and swelling, Skin: Negative for injury, rash, and discoloration, Neuro: Negative for headache, weakness, numbness, tingling, and seizure, Psych: Negative for depression, anxiety, suicide ideation, homicidal ideation, and hallucinations, Allergy/Immunology: Negative for hives, rash, and allergies, Endocrine: Negative for neck swelling, polydipsia, polyuria, polyphagia, and marked weight changes, Hematologic/Lymphatic: Negative for swollen nodes, abnormal bleeding, and unusual bruising. 15:38 Abdomen/GI: Positive for abdominal pain, of the right upper quadrant, left upper quadrant, right lower quadrant and left lower quadrant. 15:38 MS/extremity: Positive for swelling, tenderness, of the right leg and left leg. Exam: 15:38 Constitutional: This is a well developed, well nourished patient who is awake, alert, arabella and in no acute distress. Head/Face: Normocephalic, atraumatic. Eyes: Pupils equal round and reactive to light, extra-ocular motions intact. Lids and lashes normal. Conjunctiva and sclera are non-icteric and not injected. Cornea within normal limits. Periorbital areas with no swelling, redness, or edema. ENT: Nares patent. No nasal discharge, no septal abnormalities noted. Tympanic membranes are normal and external auditory canals are clear. Oropharynx with no redness, swelling, or masses, exudates, or evidence of obstruction, uvula midline. Mucous membranes moist. Neck: Trachea midline, no thyromegaly or masses palpated, and no cervical lymphadenopathy. Supple, full range of motion without nuchal rigidity, or vertebral point tenderness. No Meningismus. Chest/axilla: Normal chest wall appearance and motion. Nontender with no deformity. No lesions are appreciated. Cardiovascular: Regular rate and rhythm with a normal S1 and S2. No gallops, murmurs, or rubs. Normal PMI, no JVD. No pulse deficits. Respiratory: Lungs have equal breath sounds bilaterally, clear to auscultation and percussion. No rales, rhonchi or wheezes noted. No increased work of breathing, no retractions or nasal flaring. Back: No spinal tenderness. No costovertebral tenderness. Full range of motion. Skin: Warm, dry with normal turgor. Normal color with no rashes, no lesions, and no evidence of cellulitis. Neuro: Awake and alert, GCS 15, oriented to person, place, time, and situation. Cranial nerves II-XII grossly intact. Motor strength 5/5 in all extremities. Sensory grossly intact. Cerebellar exam normal. Normal gait. Psych: Awake, alert, with orientation to person, place and time. Behavior, mood, and affect are within normal limits. 15:38 Abdomen/GI: Inspection: distension, Bowel sounds: normal, Palpation: moderate abdominal tenderness, in all quadrants, Liver: no appreciated palpable abnormalities, Hernia: not appreciated. Vital Signs: 13:20 BP 178 / 83; Pulse 70; Resp 18; Temp 98.7; Pulse Ox 100% on R/A; tl3 15:04 BP 170 / 81; Pulse 70; Resp 18; Pulse Ox 96% ; dm5 15:40 BP 147 / 126; Pulse 70; Resp 18; Pulse Ox 98% ; tl3 17:39 BP 137 / 80; Pulse 70; Resp 18; Pulse Ox 100% on Nebulizer Mask; tl3 19:55 BP 180 / 75; Pulse 70; Resp 18; Pulse Ox 100% on R/A; tl3 MDM: 13:34 Patient medically screened. [facility] 15:41 Data reviewed: vital signs, nurses notes, lab test result(s), EKG, radiologic studies, [facility] CT scan, plain films. 05/02 13:34 Order name: Basic Metabolic Panel; Complete Time: 15:25 [facility] 05/02 13:34 Order name: CBC with Diff; Complete Time: 15:25 05/02 13:34 Order name: LFT's; Complete Time: 15:25 05/02 13:34 Order name: Magnesium; Complete Time: 15:25 05/02 13:34 Order name: NT PRO-BNP; Complete Time: 15:25 [facility] 05/02 13:34 Order name: PT-INR; Complete Time: 15:25 [facility] 05/02 13:34 Order name: Troponin (emerg Dept Use Only); Complete Time: 15:25 05/02 13:34 Order name: Lipase; Complete Time: 15:25 [facility] 05/02 13:34 Order name: TSH; Complete Time: 15:25 [facility] 05/02 15:26 Order name: ABG [facility] 05/02 15:41 Order name: AMMONIA 05/02 16:54 Order name: Procalcitonin [facility] 05/02 16:54 Order name: Blood Culture Adult (2) [facility] 05/02 17:01 Order name: Urine Dipstick--Ancillary (enter results) 05/02 13:34 Order name: XRAY Chest (1 view); Complete Time: 15:25 [facility] 05/02 13:34 Order name: EKG; Complete Time: 13:35 [facility] 05/02 13:34 Order name: Cardiac monitoring; Complete Time: 13:38 [facility] 05/02 13:34 Order name: EKG - Nurse/Tech; Complete Time: 13:38 [facility] 05/02 13:34 Order name: IV Saline Lock; Complete Time: 13:38 [facility] 05/02 13:34 Order name: Labs collected and sent; Complete Time: 14:48 [facility] 05/02 15:26 Order name: CT Abd/Pelvis - Without Cont; Complete Time: 16:47 [facility] 05/02 15:29 Order name: Echo w/ Doppler [facility] 05/02 16:52 Order name: US [facility] 05/02 17:23 Order name: Urine Dipstick-Ancillary [facility] 05/02 19:27 Order name: Procalcitonin [facility] 05/02 13:34 Order name: O2 Per Protocol; Complete Time: 13:39 [facility] 05/02 13:34 Order name: O2 Sat Monitoring; Complete Time: 13:39 [facility] 05/02 16:48 Order name: Costello; Complete Time: 18:35 [facility] Administered Medications: 15:03 Drug: NS 0.9% 1000 ml Route: IV; Rate: 75 ml/hr; Site: right jugular; Delivery: Primary dm5 tubing; 19:56 Follow up: IV Status: Infusion continued upon admission tl3 15:35 Drug: Pepcid 20 mg Route: IVP; Infused Over: 2 mins; Site: right jugular; tl3 16:05 Follow up: Response: No adverse reaction tl3 16:06 Drug: Xopenex 3.75 mg Route: Inhalation; tl3 16:06 Drug: AtroVENT Aerosol 0.5 mg Route: Inhalation; tl3 Disposition: 05/02/18 15:45 Hospitalization ordered by Modesto Fry for Inpatient Admission. Preliminary diagnosis are Edema, unspecified, Abdominal tenderness - sp appy, 1 week, Dyspnea, Chronic obstructive pulmonary disease, unspecified. - Bed requested for Telemetry/MedSurg (Inpatient). - Status is Inpatient Admission. mg2 - Condition is Fair. - Problem is new. - Symptoms have improved. UTI on Admission? No Signatures: Dispatcher [employer] [facility] Maddi Trujillo Agata Villafuerte, RN RN Sheryl Read, RN RN dm5 Chris Gaspar MD MD cha Christian, [place] Yasmin Galicia RN RN tl3 Jose R Amaya RN RN mg2 Corrections: (The following items were deleted from the chart) 18:27 15:45 Hospitalization Ordered by Modesto Fry DO for Inpatient Admission. Preliminary bd diagnosis is Edema, unspecified; Abdominal tenderness - sp appy, 1 week; Dyspnea; Chronic obstructive pulmonary disease, unspecified. Bed requested for Telemetry/MedSurg (Inpatient). Status is Inpatient Admission. Condition is Fair. Problem is new. Symptoms have improved. UTI on Admission? No. arabella 18:44 15:37 Extrem Venous W Compression Devendra+[id number].RAD.BRZ ordered. [facility] 19:37 18:27 05/02/2018 15:45 Hospitalization Ordered by Modesto Fry DO for Inpatient cc Admission. Preliminary diagnosis is Edema, unspecified; Abdominal tenderness - sp appy, 1 week; Dyspnea; Chronic obstructive pulmonary disease, unspecified. Bed requested for Telemetry/MedSurg (Inpatient). Status is Inpatient Admission. Condition is Fair. Problem is new. Symptoms have improved. UTI on Admission? No. bd 19:43 19:37 05/02/2018 15:45 Hospitalization Ordered by Modesto Fry DO for Inpatient kl Admission. Preliminary diagnosis is Edema, unspecified; Abdominal tenderness - sp appy, 1 week; Dyspnea; Chronic obstructive pulmonary disease, unspecified. Bed requested for Telemetry/MedSurg (Inpatient). Status is Inpatient Admission. Condition is Fair. Problem is new. Symptoms have improved. UTI on Admission? No. cc 21:15 19:43 05/02/2018 15:45 Hospitalization Ordered by Modesto Fry DO for Inpatient mg2 Admission. Preliminary diagnosis is Edema, unspecified; Abdominal tenderness - sp appy, 1 week; Dyspnea; Chronic obstructive pulmonary disease, unspecified. Bed requested for Telemetry/MedSurg (Inpatient). Status is Inpatient Admission. Condition is Fair. Problem is new. Symptoms have improved. UTI on Admission? No. kl
--- NOTE | 2018-05-02 15:46 | ER ---
Nurse's Notes [facility] Name: Blanquita Gillespie Age: 62 yrs Sex: Female : 1955 Arrival Date: 05/02/2018 Time: 13:14 Bed 30 Private MD: Diagnosis: Edema, unspecified;Abdominal tenderness-sp appy, 1 week;Dyspnea;Chronic obstructive pulmonary disease, unspecified Presentation: 05/02 13:17 Presenting complaint: EMS states: lower leg edema, discharged yesterday after having an tl3 apendectomy. Transition of care: patient was not received from another setting of care. Onset of symptoms was May 01, 2018 at 07:00. Risk Assessment: Do you want to hurt yourself or someone else? Patient reports no desire to harm self or others. Initial Sepsis Screen: Does the patient meet any 2 criteria? No. Patient's initial sepsis screen is negative. Does the patient have a suspected source of infection? No. Patient's initial sepsis screen is negative. Care prior to arrival: None. 13:17 Method Of Arrival: EMS: [facility] tl3 13:17 Acuity: ROSAURA 3 tl3 Triage Assessment: 13:20 General: Appears uncomfortable, well groomed, well developed, well nourished, Behavior tl3 is calm, cooperative, appropriate for age. Pain: Complains of pain in bilateral lower legs. EENT: No signs and/or symptoms were reported regarding the EENT system. Neuro: No deficits noted. Level of Consciousness is awake, alert, obeys commands, Oriented to person, place, time, situation, Appropriate for age. Cardiovascular: Patient's skin is warm and dry. Respiratory: Airway is patent Respiratory effort is even, unlabored, Respiratory pattern is regular, symmetrical. GI: No signs and/or symptoms were reported involving the gastrointestinal system. : No signs and/or symptoms were reported regarding the genitourinary system. Derm: No signs and/or symptoms reported regarding the dermatologic system. Musculoskeletal: No signs and/or symptoms reported regarding the musculoskeletal system. 13:20 Cardiovascular: Reports swelling in bilateral legs, states that legs were swollen tl3 yesterday before discharge from hospital. Historical: - Allergies: 13:20 PENICILLINS; tl3 13:20 Fish Containing Products; tl3 - Home Meds: 13:20 gabapentin 600 mg Oral tab 1 tab 3 times per day [Active]; amitriptyline 100 mg Oral tl3 tab 1 tab nightly [Active]; lisinopril 2.5 mg Oral tab 1 tab once daily [Active]; tramadol 50 mg Oral tab 1 tab every 4-6 hours [Active]; - PMHx: 13:20 Hypertension; tl3 - PSHx: 13:20 pacemaker; tl3 - Immunization history:: Adult Immunizations up to date. - Social history:: Smoking status: Patient/guardian denies using tobacco, never smoked. - Ebola Screening: : No symptoms or risks identified at this time. - Family history:: not pertinent. Screenin:24 Abuse screen: Denies threats or abuse. Nutritional screening: No deficits noted. tl3 Tuberculosis screening: No symptoms or risk factors identified. Fall Risk None identified. Assessment: 13:24 Reassessment: No changes from previously documented assessment. tl3 14:30 Reassessment: Patient appears in no apparent distress at this time. No changes from tl3 previously documented assessment. Patient and/or family updated on plan of care and expected duration. Pain level reassessed. Patient is alert, oriented x 3, equal unlabored respirations, skin warm/dry/pink. 15:40 Reassessment: Patient appears in no apparent distress at this time. No changes from tl3 previously documented assessment. Patient and/or family updated on plan of care and expected duration. Pain level reassessed. 16:35 : Urine is clear. tl3 17:39 Reassessment: Patient appears in no apparent distress at this time. No changes from tl3 previously documented assessment. Patient and/or family updated on plan of care and expected duration. Pain level reassessed. Patient is alert, oriented x 3, equal unlabored respirations, skin warm/dry/pink. 19:55 Reassessment: Patient appears in no apparent distress at this time. No changes from tl3 previously documented assessment. Patient and/or family updated on plan of care and expected duration. Pain level reassessed. Patient is alert, oriented x 3, equal unlabored respirations, skin warm/dry/pink. pt has no needs at this time. Vital Signs: 13:20 BP 178 / 83; Pulse 70; Resp 18; Temp 98.7; Pulse Ox 100% on R/A; tl3 15:04 BP 170 / 81; Pulse 70; Resp 18; Pulse Ox 96% ; dm5 15:40 BP 147 / 126; Pulse 70; Resp 18; Pulse Ox 98% ; tl3 17:39 BP 137 / 80; Pulse 70; Resp 18; Pulse Ox 100% on Nebulizer Mask; tl3 19:55 BP 180 / 75; Pulse 70; Resp 18; Pulse Ox 100% on R/A; tl3 ED Course: 13:14 Patient arrived in ED. tl3 13:16 Yasmin Galicia, RN is Primary Nurse. tl3 13:19 Triage completed. tl3 13:20 Arm band placed on right wrist. EKG completed in triage. Results shown to MD. tl3 13:24 Patient has correct armband on for positive identification. Placed in gown. Bed in low tl3 position. Call light in reach. Side rails up X 1. night monitor on. Pulse ox on. NIBP on. Warm blanket given. 13:24 No provider procedures requiring assistance completed. tl3 13:33 Chris Gaspar MD is Attending Physician. arabella 13:53 Missed attempt(s): 20 gauge in right in left antecubital area. 24 gauge in left wrist. dm5 Bleeding controlled, band aid applied, catheter tip intact. 14:05 EKG done, by electronic engineering technician. reviewed by Chris Gaspar MD. at1 14:06 Inserted saline lock: 18 gauge in right EJ, using aseptic technique. Blood collected. aj 14:19 X-ray completed. Portable x-ray completed in exam room. Patient tolerated procedure ml well. 14:21 XRAY Chest (1 view) In Process Unspecified. EDMS 15:27 ED physician to see patient. Dr Gaspar discussing POC with pt. tl3 15:[address] tl3 15:41 Modesto Fry DO is Hospitalizing Provider. arabella 15:51 CT Abd/Pelvis - Without Cont In Process Unspecified. EDMS 15:54 Note: US DONE IN ER/BEDSIDE. aa4 17:38 Costello cath inserted, using sterile technique, 16 Fr., by nv, balloon inflated. tl3 18:35 Urine Dipstick--Ancillary (enter results) Sent. tl3 18:35 Blood Culture Adult (2) Sent. tl3 18:35 Procalcitonin Sent. tl3 18:44 Echo w/ Doppler Sent. tl3 20:06 Patient admitted, IV remains in place. tl3 Administered Medications: 15:03 Drug: NS 0.9% 1000 ml Route: IV; Rate: 75 ml/hr; Site: right jugular; Delivery: Primary dm5 tubing; 19:56 Follow up: IV Status: Infusion continued upon admission tl3 15:35 Drug: Pepcid 20 mg Route: IVP; Infused Over: 2 mins; Site: right jugular; tl3 16:05 Follow up: Response: No adverse reaction tl3 16:06 Drug: Xopenex 3.75 mg Route: Inhalation; tl3 16:06 Drug: AtroVENT Aerosol 0.5 mg Route: Inhalation; tl3 Output: 19:49 Urine: 1600ml (Costello); Total: 1600ml. tl3 Outcome: 15:45 Decision to Hospitalize by Provider. arabella 20:05 Admitted to Tele accompanied by tech, via wheelchair, with chart, Report called to tl3 YOU Vargas 20:05 Condition: stable 20:05 Instructed on the need for admit. 21:15 Patient left the ED. mg2 Signatures: Dispatcher [employer] Sheryl Blanton RN Maryann Saul, Chris Roque RN, MD MD cha Lopez, Melissa ml Frazier, Amanda aa4 Maryann Maier, network planner EKG Tat1 Yasmin Galicia RN RN tl3 Jose R Amaya RN RN mg2
--- NOTE | 2018-05-02 16:00 | RAD REPORT ---
EXAM DESCRIPTION: CT - Abdomen Pelvis Wo Contrast - 05/02/2018 3:51 pm CLINICAL HISTORY: Abdominal pain COMPARISON: None TECHNIQUE: Computed axial tomography of the abdomen and pelvis was obtained. IV and oral contrast we re not requested. All CT scans are performed using dose optimization technique as appropriate and may include automated exposure control or mA/KV adjustment according to patient size. FINDINGS: The evaluation of solid organs, vessels and bowel is limited secondary to the lack of con trast administration. The liver, spleen, pancreas, adrenals and kidneys appear grossly normal. Postsurgical changes of an appendectomy are present. A 3 centimeter round structure is present within the right lower quadrant in the region of surgical suture. An abscess is not noted. No significant f ree fluid is seen. Tiny pleural effusions are present The bladder is distended IMPRESSION: 3 centimeter round structure within the right lower quadrant at the site of surgical sut ure for an appendectomy likely is a small phlegmonous collection. It does not have the appearance of an abscess. If the patient's symptoms do not improve then a followup CT scan could be obtained to ass ess stability. Bladder distention
[2018-05-02 16:13] LABS: Arterial Blood Carboxyhemoglob 1.4 % (0-1.5); Blood Gas Oxyhemoglobin 92.4 % (94-97); Blood O2 Saturation 94.6 % (92-98.5)
--- NOTE | 2018-05-02 16:50 | RAD REPORT ---
EXAM DESCRIPTION: US - Extrem Venous W Compress Devendra - 05/02/2018 4:44 pm CLINICAL HISTORY: Bilateral leg pain and swelling Preliminary verbal report provided at the time of the study. COMPARISON: None. TECHNIQUE: Real-time sonographic evaluation of the bilateral lower extremity common femoral, superfi cial femoral, popliteal and posterior tibial veins was performed. FINDINGS: Normal compressibility, flow augmentation, phasic flow and spontaneous flow are identified in the left and right lower extremity common femoral, superficial femoral, popliteal and posterior t ibial veins. No intraluminal filling defects seen. Leg edema is seen without focal mass or drainable fluid collection. IMPRESSION: No DVT in either lower extremity.
[2018-05-02] MEDS ORDERED: ACETAMINOPHEN 500 MG TAB PO PRN (17:03)
[2018-05-02] MEDS ORDERED: ALBUTEROL 2.5 MG/3 ML NEB SOL NEB PRN (17:03)
[2018-05-02] MEDS ORDERED: ONDANSETRON 4 MG/2 ML VIAL IV PRN (17:03)
[2018-05-02] MEDS ORDERED: TRAMADOL HCL 50 MG TAB PO PRN (17:03)
[2018-05-02] MEDS ORDERED: IPRATROPIUM BROM 0.5MG/2.5ML NEB PRN (17:03)
--- NOTE | 2018-05-02 17:16 | P.HP ---
Certification for Inpatient Patient admitted to: Observation With expected LOS: <2 Midnights Patient will require the following post-hospital care: None Practitioner: I am a practitioner with admitting privileges, knowledge of patient current condition, hospital course, and medical plan of care. Services: Services provided to patient in accordance with Admission requirements found in Title 42 Section 412.3 of the Code of Federal Regulations Patient History Date of Service: 05/02/18 Primary Care Provider: None Reason for admission: Lower extremity edema History of Present Illness: 62-year-old female present emergency room with lower extremity edema. Patient had surgical procedure 04/19/2018 by surgery for peritonitis with acute appendicitis and colitis. Patient was found to have acute perforated appendicitis with intra-abdominal abscess. Patient had laparoscopic appendectomy with intra-abdominal abscess drainage and partial cecetomy. Patient did well post operatively. She was discharged yesterday. Prior to discharge she noted that she had increasing edema to the lower extremities. Patient denied any significant chest pain, shortness of breath, fever or chills. Patient had tolerated a diet. She denied any significant abdominal pain, nausea vomiting. Lower extremity edema persisted. She came to the ER today to get further assessed. In the ER patient was evaluated. Patient did not appear in any distress Doppler of the lower extremities was negative for DVT. Blood gases showed a pH is 7.5, P CO2 of 41, PC O2 of 73. White count 8.9, hemoglobin 14. Sodium 139, potassium 4.1. BUN of 3, creatinine 0.5 with a GFR of greater than 90. Glucose 93. Troponin less than 0.02. BNP 8712. Lipase unremarkable. Tsh unremarkable. Chest x-ray unremarkable. CT scan showed 3 cm round structure within the right lower quadrant at the site of the surgical suture for appendectomy likely small phlegmonous collection. It is not a have appearance of an abscess. Patient remained stable. Patient will be further assessed for her edema. When I saw the patient ER, she appeared in no respiratory distress the lower extremities noted. Patient with history of pacemaker, CHF, hypertension and former tobacco use. Patient is not on a fluid restriction. She does not take Lasix at home. Allergies Penicillins Allergy (Mild, Verified 04/19/18 21:32) Rash Home medications list reviewed: Yes Home Medications: Amitriptylline 100 mg PO BEDTIME 04/19/18 Gabapentin 1 tab PO TID 04/19/18 Lisinopril [Zestril] 1 tab PO DAILY 04/19/18 Tiotropium [Spiriva Handihaler*] 1 spray IH DAILY 04/19/18 Tramadol HCl [Ultram] 1 tab PO SEECOM PRN 04/19/18 Mometasone/Formoterol [Dulera 200 Mcg/5 Mcg Inhaler] 2 puff IH BID #1 inhaler - Past Medical/Surgical History Diabetic: No -: HTN -: Pacemaker -: COPD -: CHF, diastolic dysfunction -: Former tobacco use -: Pacemaker -: Laparoscopic appendectomy with intraabdominal abscess drainage -: Partial cecetomy Psychosocial/ Personal History: Patient is . She has 2 children. She lives at home. - Family History Father -: Heart disease - Social History Smoking Status: Former smoker Alcohol use: No CD- Drugs: No Caffeine use: Yes Place of Residence: Home Review of Systems General: As per HPI Eyes: Unremarkable ENT: Unremarkable Respiratory: Unremarkable Cardiovascular: Edema, As per HPI Gastrointestinal: Unremarkable Genitourinary: Unremarkable Musculoskeletal: Pedal edema, As per HPI Integumentary: Unremarkable Neurological: Unremarkable Lymphatics: Unremarkable Physical Examination - Physical Exam General: Alert, In no apparent distress, Oriented x3, Cooperative HEENT: Atraumatic, Normocephalic, PERRLA, Mucous membr. moist/pink Neck: Supple, No Thyromegaly Respiratory: Expiratory wheezes (Bilateral) Cardiovascular: Normal pulses, Regular rate/rhythm Gastrointestinal: Normal bowel sounds, Soft and benign, Non-distended, No tenderness, No masses, No rebound, No guarding Musculoskeletal: No erythema, No tenderness, No warmth Integumentary: Tenderness/swelling (2+ pitting edema to the lower extremities bilateral up to the knee) Neurological: Normal speech, Normal strength at 5/5 x4 extr, Normal tone, Normal affect Lymphatics: No axilla or inguinal lymphadenopathy - Studies Laboratory Data (last 24 hrs) 05/02/18 14:04: PT 15.8 H, INR 1.34 05/02/18 14:04: WBC 8.9 D, Hgb 14.2, Hct 41.3, Plt Count 281 05/02/18 14:04: Sodium 139, Potassium 4.1, BUN 3 L, Creatinine 0.50 L, Glucose 93, Magnesium 2.0, Total Bilirubin 0.8, AST 23, ALT 11 L, Alkaline Phosphatase 72, Lipase 79 Assessment and Plan - Plan Impression: Bilateral lower extremity edema likely related to acute on chronic CHF suspect diastolic dysfunction Recent laparoscopic appendectomy with with intra-abdominal abscess drainage and partial cecectomy Hypertension COPD Neuropathy Insomnia Former tobacco use Bladder distention Plan: Bilateral lower extremity edema likely related to acute on chronic CHF suspect diastolic dysfunction: Patient will be admitted. Will start Lasix 40 mg IV twice daily. Chest x-ray unremarkable. Will check echocardiogram to further evaluate congestive heart failure. Patient may require Lasix at discharge. Suspect edema related to recent surgery and IV fluids. Will start DVT prophylaxis. Recent laparoscopic appendectomy with with intra-abdominal abscess drainage and partial cecectomy: Patient had surgery last week. CT scan at this time shows 3 cm round structure within the right lower quadrant site of appendectomy. This is likely a phlegmonous collection. It does not have the appearance of abscess. White count within normal range. No significant abdominal pain noted. Will check pro calcitonin level. Will monitor closely. Patient will follow up with surgery as an outpatient. Hypertension: Will restart lisinopril. Will monitor and adjust appropriately. COPD: Will provide COPD medication. Mild wheezing noted. Will monitor closely. Chest x-ray unremarkable. Neuropathy: Will restart her gabapentin. Insomnia: Will restart her Elavil. Former tobacco use: Encourage continued tobacco cessation. Bladder distention: CT scan revealed bladder distension. Will check urinalysis. Will make sure patient is urinating appropriately. Patient may need to be assessed for urinary retention. I will turn the service over to Dr. Davis tomorrow. I will go over plan of care with him. Discharge Plan: Home Plan to discharge in: 24 Hours - Advance Directives Does patient have a Living Will: No Does patient have a Durable POA for Healthcare: No - Code Status/Comfort Care Code Status Assessed: Yes (Patient is full code.) Time Spent Managing Pts Care (In Minutes): 55
[2018-05-02 17:22] LABS: Urine Blood NEGATIVE (NEG); Urine Glucose NEGATIVE (NEG); Urine Protein TRACE (NEG); Urine Specific Gravity 1.015 (1.005-1.030); Urine pH 8.5 (5.0-7.0)
[2018-05-02] MEDS: ARFORMOTEROL TARTRATE 15 MCG/2 ML VIAL.NEB NEB SCH (20:00)
[2018-05-02] MEDS ORDERED: AMITRIPTYLINE 50 MG TAB PO SCH (21:00)
[2018-05-02] MEDS: GABAPENTIN 300 MG CAP PO SCH (22:17)
[2018-05-03 05:11] LABS: Absolute Monocytes 0.9 K/uL (0.1-1.3); Hematocrit 38.7 % (36.0-45.0); Lymphocytes % 10.9 % (15.3-44.8); MCH 31.2 pg (27.0-35.0); MCV 90.8 fL (80-100); MPV 7.5 fL (7.6-11.3); Monocytes % 9.7 % (3.3-12.3); RBC Red Blood Cell Count 4.26 M/uL (3.86-4.86)
[2018-05-03 05:28] LABS: BUN Blood Urea Nitrogen 5 mg/dL (7-18); Bicarbonate 33 mmol/L (21-32); Glucose Level 136 mg/dL (74-106); Magnesium 2.2 mg/dL (1.8-2.4); Potassium 4.1 mmol/L (3.5-5.1); Sodium Level 140 mmol/L (136-145)
--- NOTE | 2018-05-03 07:16 | ECHO ---
HEIGHT: 5 ft 4 in WEIGHT: 183 lb 0 oz DATE OF STUDY: 05/02/[address]: Chris Gaspar MD 2-DIMENSIONAL: YES M.MODE: YES DOPPLER: YES COLOR FLOW: YES TDS: PORTABLE: DEFINITY: BUBBLE STUDY: DIAGNOSIS: CONGESTIVE HEART FAILURE CARDIAC HISTORY: CATHERIZATION: NO SURGERY: YES PROSTHETIC VALVE: NO PACEMAKER: YES MEASUREMENTS (cm) DIASTOLIC (NORMALS) SYSTOLIC (NORMALS) IVSd 1.1 (0.6-1.2) LA Diam 5.0 (1.9-4.0) LVEF 50-55% LVIDd 4.2 (3.5-5.7) LVIDs 3.2 (2.0-3.5) %FS 23% LVPWd 1.1 (0.6-1.2) Ao Diam 2.5 (2.0-3.7) 2 DIMENSIONAL ASSESSMENT: RIGHT ATRIUM: DILATED LEFT ATRIUM: DILATED RIGHT VENTRICLE: NORMAL LEFT VENTRICLE: NORMAL TRICUSPID VALVE: NORMAL MITRAL VALVE: NORMAL PULMONIC VALVE: NORMAL AORTIC VALVE: STENOSIS PERICARDIAL EFFUSION: NONE AORTIC ROOT: NORMAL LEFT VENTRICULAR WALL MOTION: PARADOXICAL SEPTAL MOTION SEEN WITH RIGHT VENTRICULAR PRESSURE OVERLOAD. DOPPLER/COLOR FLOW: MILD TO MODERATE TRICUSPID REGURGITATION. ESTIMATED RIGHT VENTRICULAR SYSTOLIC PRESSURE 75 mmHg (SEVERE PULMONARY HYPERTENSION). MODERATE AORTIC STENOSIS. PEAK GRADIENT 43 mmHg. MEAN GRADIENT 23 mmHg. ESTIMATED AORTIC VALVE AREA 1.1 CENTIMETERS SQUARED. MODERATE PULMONARY REGURGITATION. MILD AORTIC REGURGITATION. MILD MITRAL REGURGITATION. COMMENTS: NORMAL LEFT VENTRICULAR EJECTION FRACTION WITH PARADOXICAL SEPTAL MOTION. DILATED LEFT AND RIGHT ATRIUM. MODERATE AORTIC STENOSIS. MILD TO MODERATE TRICUSPID REGURGITATION. MODERATE PULMONARY HYPERTENSION. MILD AORTIC REGURGITATION. MILD MITRAL REGURGITATION. SEEVERE PULMONARY HYPERTENSION. TECHNOLOGIST: CASSIE DURHAM
[2018-05-03] MEDS ORDERED: INFLUENZA VACCINE (for 3y+) 0.5 ML DOSE IMVAC ONE (08:00)
--- NOTE | 2018-05-03 08:24 | RAD REPORT ---
EXAM DESCRIPTION: Familia Guzman And Yamila (2 Views)05/03/2018 6:44 am CLINICAL HISTORY: Shortness of breath COMPARISON: 05/02/2018 FINDINGS: The lungs appear clear of acute infiltrate. The heart is mildly enlarged. Pacemaker lead is in place. Small pleural effusions are present
[2018-05-03] MEDS: ARFORMOTEROL TARTRATE 15 MCG/2 ML VIAL.NEB NEB SCH (08:30)
[2018-05-03] MEDS: GABAPENTIN 300 MG CAP PO SCH (08:32)
[2018-05-03] MEDS ORDERED: ASPIRIN EC 81 MG TAB PO SCH (09:00)
[2018-05-03] MEDS ORDERED: FUROSEMIDE 40 MG/4 ML VIAL IV SCH (09:00)
[2018-05-03] MEDS ORDERED: LISINOPRIL 5 MG TAB PO SCH (09:00)
[2018-05-03] MEDS ORDERED: ENOXAPARIN 40 MG/0.4 ML SQ SCH (09:00)
--- NOTE | 2018-05-04 05:43 | DS ---
Date of Discharge: 05/03/2018 Discharge Diagnoses: 1.Bilateral lower extremity edema secondary to acute on chronic congestive heart failure. 2.Acute on chronic congestive heart failure, diastolic dysfunction with ejection fraction of 50% to 55%. 3.Severe pulmonary hypertension. 4.Recent laparoscopic appendectomy with intraabdominal abscess drainage and partial cecectomy. 5.Essential hypertension. 6.Chronic obstructive pulmonary disease, chronic bronchitis. 7.Neuropathy, on gabapentin. 8.Insomnia. 9.History of tobacco use. 10.Bladder distention. 11.Status post pacemaker. Hospital Course: The patient is a 62-year-old female who comes in following surgery for peritonitis with acute appendicitis and colitis. The patient had an acute perforated appendicitis with intraabdo renetta abscess. She underwent a laparoscopic appendectomy and intraabdominal abscess drainage and par tial cecectomy on 04/19/2018. Postoperatively, she did well and was discharged. However, noticing i ncreasing edema to her lower extremities. Therefore, came into the hospital for further evaluation. Upon arrival, her BNP was elevated at 8712. Troponin was negative. Chest x-ray was unremarkable. CT of the abdomen showed a 3 cm round structure within the right lower quadrant at the site of the de la cruz rgical suture for appendectomy, likely small phlegmonous collection, did not have an appearance of ab scess. The patient was started on diuresis with Lasix. Her procalcitonin was negative. white count was normal. The patient did well after the diuresis. Echocardiogram was obtained which showed EF 50% to 55%. She did have moderate aortic stenosis, mild to moderate tricuspid regurgitatio n, moderate pulmonary hypertension, mild aortic regurgitation, mild mitral regurgitation, and moderat e to severe pulmonary hypertension. Chest x-ray was repeated which showed lungs clear of any acute i nfiltrate, heart mildly enlarged, pacemaker leads in place, small pleural effusions present. The pat ient otherwise was doing well. She was off oxygen. Her blood pressure was stable. She did have an extremity venous Doppler done which was negative for DVT in either lower extremity. The patient did have some cold lower extremities, which she states is chronic for her. Pulses are present and it was confirmed with Doppler. The patient does not have a primary care physician and community mental health social worker was al so involved to provide the patient with list of PCPs in the area. She was also given [employer] [facility] for prescription assistance. The patient was otherwise doing well. She was able to ambulate without an y difficulty. Her swelling of the lower extremities was significantly improved. The patient was the n discharged home in a stable condition. Activity: As tolerated. Medications: As per medication reconciliation list. Diet: Low sodium, 1500 mL fluid restriction. Followup: Establish care with primary care physician in 1 week. Follow up with surgeon as scheduled . Follow up with Cardiology as outpatient in 2-4 weeks. Return to ER for worsening condition. Physical Examination: General: Awake, alert, oriented x3. No acute distress. CV: S1, S2. No murmurs. Respiratory: Moving air well bilaterally. Abdomen: Abdomen is soft, nontender, nondistended. Positive bowel sounds. Extremities: No clubbing or cyanosis. Trace pedal edema. Neurologic: Nonfocal. Skin: Patient does have some cool lower extremities, however pulses are present. Total time spent discharging the patient was 42 minutes. /MUNDO Voice ID: [id number] Report ID: [id number]
== END 2018-05-03 13:29 | disposition home or self-care (01) | DRG 293 ==
LOC: ER 13:07 → ERHOLD 15:46 → 4TH 20:09
PROVIDERS: ADMIT Family Medicine; ATTEND Family Medicine
PROC: 0T9B70Z Drainage of Bladder with Drainage Device, Via Natural or Artificial Opening (ICD-10-PCS; principal; 2018-05-02)
DX: I50.33 Acute on chronic diastolic (congestive) heart failure (principal); I10 Essential (primary) hypertension; I50.30 Unspecified diastolic (congestive) heart failure; J44.9 Chronic obstructive pulmonary disease, unspecified; G62.9 Polyneuropathy, unspecified; G47.00 Insomnia, unspecified; I27.20 Pulmonary hypertension, unspecified; N32.89 Other specified disorders of bladder; Z95.0 Presence of cardiac pacemaker; Z87.891 Personal history of nicotine dependence
CPT/HCPCS: 36415; 51702; 71045; 71046; 74176; 80048; 80076; 81003; 82140; 82805; 83690; 83735; 83880; 84145; 84443; 84484; 85025; 85610; 87040; 93005; 93306; 93970; 94640; 96361; 96374; 99285; J1650; J7030; J7605